=== PATIENT | female | born 1975 | race Caucasian/White ===

== ENCOUNTER → 2018-02-24 12:41 | Outpatient (CLI) | payer OTHER, MEDICAID, SELFPAY ==
--- NOTE | 2018-02-24 | DI.US.S_ITS ---
PROCEDURE: US PELVIC COMPLETE INDICATIONS: HEAVY BLEEDING TECHNIQUE: Real-time scanning was performed of the pelvic organs, with image documentation. Additional endovaginal scanning was necessary due to incomplete visualization of the adnexal and endometrial structures by transabdominal scanning. COMPARISON: [facility], US, PELVIC COMPLETE, 09/30/2011, 16:37. FINDINGS: Transabdominal scanning: Limited scanning through the kidneys shows no hydronephrosis. No pathologic free abdominal or pelvic fluid. Endovaginal scanning: Uterus: The uterus is measuring within the upper limits of normal for size at 9.5 x 5.5 x 6 point centimeters. There are 2 posteriorly positioned fibroid along the mid aspect of the uterus. One is located on the intracranial region and the other is located on the surface of the uterus. These fibroids range in size from 1.5-2.0 cm in diameter. The endometrium measures 9 mm in maximal combined thickness. No significant fluid is contained within the endometrium. The cervix is grossly unremarkable. Ovaries: The right ovary measures 3.1 x 3.3 x 3.4 cm and is mildly enlarged, related to a collapsing versus recently ruptured mildly echogenic cyst measuring up to 1.8 cm in diameter.. The left ovary measures 3.3 x 1.8 x 2.9 cm. The left ovary is normal in size and otherwise unremarkable. IMPRESSION: 1. Endometrium appears to be within normal limits. 2. Small uterine fibroids. No submucosal fibroids are evident. 3. Probable collapsing versus hemorrhagic right ovarian cyst. Dictated by: Devon Yi M.D. on 02/24/2018 at 12:59 Approved by: Devon Yi M.D. on 02/24/2018 at 13:02
== END ==
PROVIDERS: Family Provider Family Medicine; PCP Family Medicine; Visit Provider Physician Assistant Medical
DX: N93.9 Abnormal uterine and vaginal bleeding, unspecified (principal); D25.9 Leiomyoma of uterus, unspecified; N83.201 Unspecified ovarian cyst, right side
CPT/HCPCS: 76830; 76856

== ENCOUNTER 2019-08-01 18:26 | Emergency (ER) | payer OTHER, MEDICAID, SELFPAY ==
[2019-08-01 18:45] VITALS: BP 137/83; PULSE 89; RESP 18; TEMP 37; O2SAT 98
--- NOTE | 2019-08-01 19:16 | ED_ITS ---
HPI - Abdominal Pain General Chief Complaint: Abdominal Pain Stated Complaint: pain in ribs, states liver is inflammed Time Seen by Provider: 08/01/19 19:05 Source: patient and old records reviewed Mode of arrival: Ambulatory Limitations: no limitations History of Present Illness HPI narrative: Patient is a 44 year old female with history of trigeminal neuralgia presenting today with a variety of complaints. She states that her chest has been hurting for about 2 days. It comes and goes, she says it seems to be her ribs bilaterally starting posteriorly and radiating to the front. It lasts from 30 minutes to a few hours. Worse with exertion and movement. She did say that it woke her from her sleep last night. She went to her PCP where she had blood work and it was found that her liver enzymes were elveated in the 500's. She is having some abdominal pain, right sided both upper and lower. She is currently chest pain free. MD complaint: abdominal pain Pain Consistency: intermittent Location: RUQ and RLQ Severity: mild Quality: sharp Relieving factors: nothing Exacerbating factors: movement Related Data Previous Rx's Medication Instructions Recorded dexamethasone 2 mg PO BID #15 tab 12/15/16 Allergies Allergy/AdvReac Type Severity Reaction Status Date / Time Sulfa (Sulfonamide Allergy Mild RASH Unverified 01/18/18 12:04 Antibiotics) Review of Systems Review of Systems ROS Unobtainable: All systems reviewed & are unremarkable except as noted in HPI and below Constitutional Constitutional: Denies chills, Denies fever(s), Denies lethargy and Denies weakness Cardiovascular Cardiovascular: Reports as per HPI and Reports chest pain Gastrointestinal Gastrointestinal: Reports as per HPI, Reports abdominal pain, Denies diarrhea, Denies nausea and Denies vomiting Genitourinary Genitourinary: Denies hematuria, Denies flank pain, Denies urinary incontinence and Denies urinary urgency Musculoskeletal Musculoskeletal: Denies back pain, Denies muscle weakness, Denies numbness and Denies tingling Integumentary/Breasts Skin/Breast: Denies pruritus, Denies erythema, Denies rash and Denies wounds Neurologic Neurologic: Denies numbness, Denies tingling and Denies weakness Patient History Medical History Trigeminal neuralgia (Acute) Social History Smoking Status: Never smoker alcohol intake frequency: holidays/special occasions only Substance Use Type: marijuana Exam Initial Vital Signs Initial Vital Signs: Vital Signs Temperature 98.6 F 08/01/19 18:45 Pulse Rate 89 08/01/19 18:45 Respiratory Rate 18 08/01/19 18:45 Blood Pressure 137/83 08/01/19 18:45 Pulse Oximetry 98 08/01/19 18:45 Const General: cooperative and well developed Nutritional Appearance: well nourished Orientation: alert, awake, oriented x3 and not confused [facility] Head: normal to inspection and normocephalic Eyes General: appearance normal, both eyes and all related structures Resp Effort & Inspection: normal respiratory effort, able to speak in complete sentences, no respiratory distress and no use of accessory muscles Auscultation: clear to auscultation bilaterally, no rales, no rhonchi and no wh eezes Cardio Rate: regular rate Rhythm: regular rhythm Heart Sounds: no click, no gallops, no murmurs and no rubs Pulses: normal peripheral pulses GI Inspection: normal to inspection Palpation: soft and tender (RUQ pain +house's and RLQ pain) Skin General: no rashes or lesions noted, No jaundice and No petechiae Neuro General: alert, oriented x3, gait normal and no focal motor deficits Speech: speech normal Extrem General: normal to inspection Course Orders Ordered: ED Orders 08/01/19 19:05 EKG-12 Lead Stat 08/01/19 19:14 CT abdomen pelvis w con Stat US abdomen limited Stat XR chest 1V Stat 08/01/19 19:15 Complete Blood Count AUTO DIFF Stat Comprehensive Metabolic Panel Stat Lipase Stat Partial Thromboplastin Time Stat Prothrombin Time INR Stat Troponin & CK Cardiac Panel Stat Discontinued Medications Hydromorphone HCl (Dilaudid) 0.5 mg IV NOW ONE Stop: 08/01/19 21:26 Last Admin: 08/01/19 21:30 Dose: 0.5 mg Documented by: MMCFARL Sodium Chloride (Normal Saline 0.9%) 1,000 mls @ 125 mls/hr IV CONT RONAL Last Infusion: 08/01/19 22:46 Dose: 125 mls/hr Documented by: Admin: 08/01/19 22:13 Dose: 125 mls/hr Documented by: MMCFARL Ondansetron HCl (Zofran) 4 mg IV NOW ONE Stop: 08/01/19 22:03 Last Admin: 08/01/19 22:13 Dose: 4 mg Documented by: BINU Vital Signs Vital signs: Vital Signs - 8 hr 08/01/19 18:45 08/01/19 19:45 08/01/19 20:00 Temperature 98.6 F Pulse Rate 89 83 85 Respiratory Rate 18 19 15 Blood Pressure 137/83 Blood Pressure [Left Arm] 116/90 109/66 Pulse Oximetry 98 99 100 08/01/19 21:30 08/01/19 22:00 Temperature Pulse Rate 87 88 Respiratory Rate 17 16 Blood Pressure Blood Pressure [Left Arm] 134/88 118/81 Pulse Oximetry 100 100 MDM - Abdominal Pain Lab Data Attestation: I reviewed the patient's lab results. Result diagrams: 08/01/19 19:15 08/01/19 19:15 Labs: Lab Results 08/01/19 08/01/19 08/01/19 Range/Units 19:15 19:15 19:15 WBC 5.1 (4.5-11.0) X10^3/uL RBC 4.06 (4.0-5.2) X10^6/uL Hgb 13.2 (12.0-16.0) g/dL Hct 38.6 (36-46) % MCV 95.3 (80-100) fL MCH 32.4 (26-34) PG MCHC 34.1 (30-36) % RDW 12.5 (11.6-14.8) % Plt Count 227 (150-400) X10^3/uL Neut % (Auto) 60.7 (50-75) % Lymph % (Auto) 30.4 (25-40) % [place] % (Auto) 6.8 (3-14) % Eos % (Auto) 1.3 L (2-4) % Baso % (Auto) 0.8 (0-2) % Neut # (Auto) 3100 (6713-8995) /uL Lymph # (Auto) 1500 (5597-2175) /uL [place] # (Auto) 300 (0-900) /uL Eos # (Auto) 100 (0-450) /uL Baso # (Auto) 0 (0-100) /uL PT 10.6 (10.1-12.7) SECONDS INR 0.9 (0.9-1.3) APTT 28 (26.4-36.2) SECONDS Sodium 138 (137-145) mmol/L Potassium 3.7 (3.4-5.1) mmol/L Chloride 108 H (98-107) mmol/L Carbon Dioxide 22 (22-32) mmol/L BUN 7 (7-17) mg/dL Creatinine 0.70 (0.52-1.04) mg/dL Estimated GFR > 60.0 (>60) mL/min BUN/Creatinine Ratio 10.0 (6-22) Glucose 94 (70-100) mg/dL Calcium 9.1 (8.4-10.2) mg/dL Total Bilirubin 2.9 H (0.2-1.3) mg/dL AST 729 H (14-36) IU/L ALT 1482 H (9-52) IU/L Alkaline Phosphatase 173 H (38-126) U/L Total Creatine Kinase (30-135) U/L CK-MB (CK-2) CK-MB (CK-2) Rel Index Troponin I (0.01-0.034) ng/mL Total Protein 7.7 (6.3-8.2) g/dL Albumin 4.7 (3.5-5.0) g/dL Globulin 3.0 (1.7-4.1) g/dL Albumin/Globulin Ratio 1.6 (1.0-2.8) Lipase 115 (23-300) U/L 08/01/19 Range/Units 19:15 WBC (4.5-11.0) X10^3/uL RBC (4.0-5.2) X10^6/uL Hgb (12.0-16.0) g/dL Hct (36-46) % MCV (80-100) fL MCH (26-34) PG MCHC (30-36) % RDW (11.6-14.8) % Plt Count (150-400) X10^3/uL Neut % (Auto) (50-75) % Lymph % (Auto) (25-40) % [place] % (Auto) (3-14) % Eos % (Auto) (2-4) % Baso % (Auto) (0-2) % Neut # (Auto) (8008-6171) /uL Lymph # (Auto) (4367-0960) /uL [place] # (Auto) (0-900) /uL Eos # (Auto) (0-450) /uL Baso # (Auto) (0-100) /uL PT (10.1-12.7) SECONDS INR (0.9-1.3) APTT (26.4-36.2) SECONDS Sodium (137-145) mmol/L Potassium (3.4-5.1) mmol/L Chloride (98-107) mmol/L Carbon Dioxide (22-32) mmol/L BUN (7-17) mg/dL Creatinine (0.52-1.04) mg/dL Estimated GFR (>60) mL/min BUN/Creatinine Ratio (6-22) Glucose (70-100) mg/dL Calcium (8.4-10.2) mg/dL Total Bilirubin (0.2-1.3) mg/dL AST (14-36) IU/L ALT (9-52) IU/L Alkaline Phosphatase (38-126) U/L Total Creatine Kinase 67 (30-135) U/L CK-MB (CK-2) TNP CK-MB (CK-2) Rel Index TNP Troponin I < 0.012 (0.01-0.034) ng/mL Total Protein (6.3-8.2) g/dL Albumin (3.5-5.0) g/dL Globulin (1.7-4.1) g/dL Albumin/Globulin Ratio (1.0-2.8) Lipase (23-300) U/L Point of care testing: Point of Care Testing Test Results Negative Urine Dip Bedside Urine Glucose Negative Bedside Urine Bilirubin - Negative Bedside Urine Ketone - Negative Urine Specific [place] 1.005 Bedside Urine Occult Blood +/- Bedside Urine pH 7.0 Bedside Urine Protein - Negative Bedside Urine Urobilinogen - Negative Bedside Urine Nitrite - Negative Bedside Urine Leukocytes - Negative Esterase Imaging Data Chest x-ray: Radiologist's impression: PROCEDURE: XR CHEST 1V INDICATIONS: chest pain TECHNIQUE: One view of the chest was acquired. COMPARISON: [facility], , CHEST 1 VIEW, 12/10/2017, 9:27. FINDINGS: Surgical changes and devices: None. Lungs and pleura: Lungs are clear. No pleural effusions or pneumothorax. Mediastinum: Mediastinal contours appear normal. Heart size is normal. Bones and chest wall: No suspicious bony lesions. Overlying soft tissues appear unremarkable. IMPRESSION: No acute cardiopulmonary disease. Dictated by: Lori Padilla M.D. on 08/01/2019 at 20:22 US - abdomen: Radiologist's impression: PROCEDURE: US ABDOMEN LIMITED INDICATIONS: RIGHT UPPER QUADRANT PAIN TECHNIQUE: Real-time focused scanning was performed of the right upper quadrant of the abdomen, with image documentation. COMPARISON: None. FINDINGS: The gallbladder contains numerous stones, one of the largest is 5 mm. They layer dependently and are mobile. The wall is normal thickness at 2.2 mm. No pericholecystic fluid. There was a sonographic House's sign per the technologist. Visible pancreas is normal. The liver is normal in size and echogenicity. No intrahepatic biliary dilatation. The extrahepatic common duct is at the upper limits of normal at 6.6 mm. The visible portions of the right kidney are normal without hydronephrosis. No fluid in Russ's pouch. IMPRESSION: 1. Cholelithiasis. 2. Positive sonographic House's sign but no other objective sonographic findings of acute cholecystitis. Close clinical followup is recommended. 3. Otherwise normal right upper quadrant ultrasound. Dictated by: Lori Padilla M.D. on 08/01/2019 at 21:19 CT scan - abdomen: Radiologist's impression: PROCEDURE: CT ABDOMEN PELVIS W CON INDICATIONS: rlq pain and ruq pain TECHNIQUE: After the administration of intravenous contrast, 5 mm thick sections acquired from the diaphragm to the symphysis. 5 mm coronal and sagittal reformats were acquired. For radiation dose reduction, the following was used: automated exposure control, adjustment of mA and/or kV according to patient size. COMPARISON: None. FINDINGS: Image quality: Excellent. ABDOMEN: Lung bases: Lung bases are clear. Heart size is normal. Solid organs: Liver is normal in size and enhancement. Gallbladder contains fine calcification layering dependently in the body and neck of gallbladder. No significant surrounding inflammation. Biliary system is non dilated. Pancreas enhances normally. Spleen is normal in size and enhancement. No adrenal nodules. Kidneys demonstrate normal size and enhancement, without hydronephrosis. Peritoneum and bowel: Bowel loops demonstrate normal wall thickness and caliber. No free fluid or air. Normal appendix. Nodes and vessels: No retroperitoneal or mesenteric adenopathy by size criteria. Aorta and inferior vena cava are normal in size. Miscellaneous: No ventral hernias. PELVIS: Genitourinary: Bladder wall thickness is normal. The uterus is surgically absent. Ovarian tissue appears normal. Miscellaneous: No inguinal hernias or adenopathy. Bones: No suspicious bony lesions. No vertebral body compression fractures. IMPRESSION: 1. Cholelithiasis without CT evidence of acute cholecystitis. 2. Normal appendix and right ovary. 3. Hysterectomy. Dictated by: Lori Padilla M.D. on 08/01/2019 at 21:22 ECG Data Attestation: I personally reviewed and interpreted this ECG as follows: Prior ECG tracings: not available for review Interpretation: Normal sinus rhythm rate 69 p.r. interval 154 QRS [address] elevations depressions or T-wave inversion MDM Narrative Medical decision making narrative: Patient is tender in the right upper quadrant. Liver enzymes are significantly more elevated than they were previously, she also now has an elevated bilirubin of 2.9 previously 1.0. She has no fever no leukocytosis at this time no sign of acute cholecystitis. No indication for antibiotics Dr. Jennings surgery states that patient does need an ERCP not available at [facility]. Dr. Badillo at [facility] happily accepts patient for transfer. Discharge Plan Departure Patient Disposition: [facility] Clinical Impression: Cholelithiasis Discharge Date/Time: 08/01/19 22:46 Prescriptions: No Action dexamethasone 2 MG tablet 2 mg PO BID Qty: 15 RF: 0 Referrals: Jorge Luis Dykes MD [Primary Care Provider] -
--- NOTE | 2019-08-01 19:30 | PC.NURSE ---
PT states intermittent right sided abd pain and chest pain for past 2 days. Pt states CP has resolved yet abd pain is still present and worsens with exertion or movement. Pt reports she saw her PCP today and was told to come to ER for elevated liver enzymes in the 500's. Pt states she is nauseated and vomited once last night. Abdominal tender upon palpation. Pt has hx of trigeminal neuralgia. n
[2019-08-01 19:40] LABS: Add Manual Diff / Slide Review NO; Basophils Absolute Auto 0 /uL (0-100); Basophils Percent Auto 0.8 % (0-2); Eosinophils Absolute Auto 100 /uL (0-450); Eosinophils Percent Auto 1.3 % (2-4); Hematocrit 38.6 % (36-46); Hemoglobin 13.2 g/dL (12.0-16.0); Lymphocytes Absolute Auto 1500 /uL (1100-4500); Lymphocytes Percent Auto 30.4 % (25-40); Mean Corpuscular HGB Conc 34.1 % (30-36); Mean Corpuscular Hemoglobin 32.4 PG (26-34); Mean Corpuscular Volume 95.3 fL (80-100); Monocytes Absolute Auto 300 /uL (0-900); Monocytes Percent Auto 6.8 % (3-14); Neutrophils Absolute Auto 3100 /uL (1500-7000); Neutrophils Percent Auto 60.7 % (50-75); Platelet Count 227 X10^3/uL (150-400); Red Blood Cell Count 4.06 X10^6/uL (4.0-5.2); Red Cell Distribution Width 12.5 % (11.6-14.8); White Blood Cell Count 5.1 X10^3/uL (4.5-11.0)
[2019-08-01 19:45] VITALS: BP 116/90; PULSE 83; RESP 19; O2SAT 99
[2019-08-01 19:46] LABS: INR 0.9 (0.9-1.3); Prothrombin Time 10.6 SECONDS (10.1-12.7)
[2019-08-01 19:49] LABS: PTT Partial Thromboplastin Tim 28 SECONDS (26.4-36.2)
[2019-08-01 19:51] LABS: Creatine Kinase 67 U/L (30-135)
[2019-08-01 20:00] VITALS: BP 109/66; PULSE 85; RESP 15; O2SAT 100
[2019-08-01 20:03] LABS: Troponin I < 0.012 ng/mL (0.01-0.034)
[2019-08-01 20:11] LABS: Albumin 4.7 g/dL (3.5-5.0); Albumin Globulin Ratio 1.6 (1.0-2.8); Alkaline Phosphatase 173 U/L (38-126); Aspartate Aminotransferase 729 IU/L (14-36); Bilirubin Total 2.9 mg/dL (0.2-1.3); Blood Urea Nitrogen 7 mg/dL (7-17); Calcium 9.1 mg/dL (8.4-10.2); Carbon Dioxide 22 mmol/L (22-32); Chloride 108 mmol/L (98-107); Estimated Glomerular Filt Rate > 60.0 mL/min (>60); Glucose 94 mg/dL (70-100); HEMOLYSIS < 15 (0-50); Lipase 115 U/L (23-300); Potassium 3.7 mmol/L (3.4-5.1); Sodium 138 mmol/L (137-145); Total Protein 7.7 g/dL (6.3-8.2)
[2019-08-01 20:19] LABS: Alanine Aminotransferase 1482 IU/L (9-52)
[2019-08-01 21:30] VITALS: BP 134/88; PULSE 87; RESP 17; O2SAT 100
[2019-08-01] MEDS: HYDROMORPHONE 0.5 MG INJ IV (21:30)
[2019-08-01 22:00] VITALS: BP 118/81; PULSE 88; RESP 16; O2SAT 100
[2019-08-01] MEDS: ONDANSETRON 4 MG/2 ML INJ IV (22:13)
[2019-08-01] MEDS: SODIUM CHLORIDE 0.9% 1,000 ML 125 ML IV (22:13)
== END 2019-08-01 22:46 | disposition short-term general hospital (02) ==
PROVIDERS: Emergency Provider Emergency Medicine; Family Provider Family Medicine; PCP Family Medicine
DX: K80.20 Calculus of gallbladder without cholecystitis without obstruction (principal); R07.9 Chest pain, unspecified; R10.11 Right upper quadrant pain
CPT/HCPCS: 36415; 71045; 74177; 76705; 80053; 81003; 81025; 82550; 83690; 84484; 85025; 85610; 85730; 93005; 96361; 96374; 96375; 99283; 99285; J1170; J2405; Q9967

== ENCOUNTER 2019-08-10 18:46 | Inpatient (IN) | payer OTHER, MEDICAID, SELFPAY ==
[2019-08-10 18:54] VITALS: BP 129/83; PULSE 93; RESP 15; TEMP 37.4; O2SAT 99; BMI 35.5
[2019-08-10 19:54] VITALS: BP 130/87; PULSE 82; RESP 19; O2SAT 100
--- NOTE | 2019-08-10 19:59 | ED_ITS ---
HPI - Abdominal Pain General Chief Complaint: Abdominal Pain Stated Complaint: PAIN RIGHT SIDE PAIN BACK SHOULDER AND CHEST Time Seen by Provider: 08/10/19 19:52 Source: patient Mode of arrival: Ambulatory Limitations: no limitations History of Present Illness HPI narrative: 44-year-old female who approximately 1 week ago was seen here in this emergency department. Was diagnosed with choledocholithiasis with elev ation in her LFTs. Was sent to [facility]. Patient states that during that admission she had a ERCP. She stated that she had ?3 stones? removed from her common bile duct. She stated that there was discussion about taking her gallbladder out however they decided to hold on doing this because of the elevation in her LFTs. She stated that yesterday she had routine blood work done ordered by the providers at [facility]. This was done an outside facility. She got a call from both her primary doctor and the doctors at [facility] to come to this emergency department because she had abnormalities in her lab tests and was told that she had ?pancreatitis? patient does report bilateral upper abdomen pain. She states that it is somewhat better than when she was here 1 week ago. Some vomiting. Related Data Previous Rx's Medication Instructions Recorded dexamethasone 2 mg PO BID #15 tab 12/15/16 Allergies Allergy/AdvReac Type Severity Reaction Status Date / Time Sulfa (Sulfonamide Allergy Mild RASH Verified 08/10/19 18:54 Antibiotics) Review of Systems Constitutional Constitutional: Denies fever(s) Cardiovascular Cardiovascular: Denies chest pain and Denies dyspnea Respiratory Respiratory: Denies dyspnea Gastrointestinal Gastrointestinal: Reports abdominal pain, Denies change in stool character, Denies nausea and Denies vomiting Genitourinary Genitourinary: Denies dysuria Musculoskeletal Musculoskeletal: Denies myalgias and Denies arthralgias Integumentary/Breasts Skin/Breast: Denies pruritus and Denies rash Neurologic Neurologic: Denies behavioral changes Psychiatric Psychiatric: Denies behavioral changes Hematologic/Lymphatic Hematologic/Lymphatic: Denies easy bleeding and Denies easy bruising Patient History Medical History (Updated 08/10/19 @ 22:41 by Garfield Arriaza DO) Atypical chest pain (Inactive) Cholelithiases (Inactive) Headache (Inactive) Trigeminal neuralgia (Acute) Social History Smoking Status: Never smoker alcohol intake frequency: holidays/special occasions only Substance Use Type: marijuana Exam Initial Vital Signs Initial Vital Signs: Vital Signs Temperature 99.4 F 08/10/19 18:54 Pulse Rate 93 H 08/10/19 18:54 Respiratory Rate 15 08/10/19 18:54 Blood Pressure 129/83 08/10/19 18:54 Pulse Oximetry 99 08/10/19 18:54 Const General: cooperative, comfortable and well developed Orientation: alert, awake and oriented x3 HENMT Head: normal to inspection and normocephalic Resp Effort & Inspection: normal respiratory effort Auscultation: clear to auscultation bilaterally Cardio Rate: regular rate Rhythm: regular rhythm GI Inspection: non-distended Palpation: soft, No firm and tender (Upper abdomen tenderness) Skin Lesions: no lesions Rashes: no rashes Neuro General: alert and awake Cognition: normal cognition Speech: speech normal Extrem General: normal to inspection and capillary refill normal Psych Appearance: grossly normal and well kempt Course Orders Ordered: ED Orders 08/10/19 20:15 Complete Blood Count AUTO DIFF Stat Comprehensive Metabolic Panel Stat Lipase Stat Partial Thromboplastin Time Stat Prothrombin Time INR Stat 08/10/19 20:58 EKG-12 Lead Stat 08/10/19 21:39 US abdomen limited Stat Lactated Ringer's (Lactated Ringers) 1,000 mls @ 125 mls/hr IV CONT RONAL Discontinued Medications Ondansetron HCl (Zofran) 4 mg IV NOW ONE Stop: 08/10/19 20:27 Last Admin: 08/10/19 20:32 Dose: 4 mg Documented by: DAYNE Vital Signs Vital signs: Vital Signs - 8 hr 08/10/19 18:54 08/10/19 19:54 08/10/19 21:17 Temperature 99.4 F Pulse Rate 93 H 82 72 Respiratory Rate 15 19 15 Blood Pressure 129/83 Blood Pressure [Right Arm] 130/87 115/74 Pulse Oximetry 99 100 98 MDM - Abdominal Pain Lab Data Attestation: I reviewed the patient's lab results. Result diagrams: 08/10/19 20:15 08/10/19 20:15 Labs: Lab Results 08/10/19 08/10/19 08/10/19 Range/Units 20:15 20:15 20:15 WBC 6.8 (4.5-11.0) X10^3/uL RBC 3.84 L (4.0-5.2) X10^6/uL Hgb 12.7 (12.0-16.0) g/dL Hct 36.4 (36-46) % MCV 94.7 (80-100) fL MCH 32.9 (26-34) PG MCHC 34.8 (30-36) % RDW 12.8 (11.6-14.8) % Plt Count 311 (150-400) X10^3/uL Neut % (Auto) 51.5 (50-75) % Lymph % (Auto) 38.6 (25-40) % [place] % (Auto) 8.0 (3-14) % Eos % (Auto) 1.3 L (2-4) % Baso % (Auto) 0.6 (0-2) % Neut # (Auto) 3500 (4810-3832) /uL Lymph # (Auto) 2600 (4460-1212) /uL [place] # (Auto) 500 (0-900) /uL Eos # (Auto) 100 (0-450) /uL Baso # (Auto) 0 (0-100) /uL PT 11.0 (10.1-12.7) SECONDS INR 1.0 (0.9-1.3) APTT 32 D (26.4-36.2) SECONDS Sodium 136 L (137-145) mmol/L Potassium 3.7 (3.4-5.1) mmol/L Chloride 108 H (98-107) mmol/L Carbon Dioxide 22 (22-32) mmol/L BUN 10 (7-17) mg/dL Creatinine 0.60 (0.52-1.04) mg/dL Estimated GFR > 60.0 (>60) mL/min BUN/Creatinine Ratio 16.7 (6-22) Glucose 95 (70-100) mg/dL Calcium 9.4 (8.4-10.2) mg/dL Total Bilirubin 0.5 (0.2-1.3) mg/dL AST 28 (14-36) IU/L ALT 175 H (<35) IU/L Alkaline Phosphatase 90 D (38-126) U/L Total Protein 7.1 (6.3-8.2) g/dL Albumin 4.5 (3.5-5.0) g/dL Globulin 2.6 (1.7-4.1) g/dL Albumin/Globulin Ratio 1.7 (1.0-2.8) Lipase 651 H D (23-300) U/L Point of care testing: Point of Care Testing Test Results Negative Urine Dip Bedside Urine Glucose Negative Bedside Urine Bilirubin - Negative Bedside Urine Ketone - Negative Urine Specific [place] 1.010 Bedside Urine Occult Blood - Negative Bedside Urine pH 7.5 Bedside Urine Protein - Negative Bedside Urine Urobilinogen - Negative Bedside Urine Nitrite - Negative Bedside Urine Leukocytes - Negative Esterase MDM Narrative Medical decision making narrative: Review of the patient's labs that were done at [facility] show that she had a lipase in the 170s. Had a normal LFTs except for a slightly elevated alk-phos. This was done yesterday. Repeat labs today does show a lipase in the 600. She does have upper abdomen tenderness. Has known gallbladder disease. I discussed the case with Dr. Cheney with general surgery who states that because the elevation in her lipase that she should be admitted for treatment and potential cholecystectomy. Discussed this with the patient. She expressed understanding and agreement. Discharge Plan Departure Patient Disposition: Admitted As Inpatient Clinical Impression: Cholelithiases Qualifiers: Cholelithiasis location: other site Biliary obstruction: without biliary obstruction Qualified Code(s): K80.80 - Other cholelithiasis without obstruction Pancreatitis Qualifiers: Chronicity: acute Pancreatitis type: unspecified pancreatitis type Acute pancreatitis complication: unspecified Qualified Code(s): K85.90 - Acute pancreatitis without necrosis or infection, unspecified Admit Date/Time: 08/10/19 21:38 Admit Provider: Anastasiia Cheney
[2019-08-10 20:22] LABS: Add Manual Diff / Slide Review NO; Basophils Absolute Auto 0 /uL (0-100); Basophils Percent Auto 0.6 % (0-2); Eosinophils Absolute Auto 100 /uL (0-450); Eosinophils Percent Auto 1.3 % (2-4); Hematocrit 36.4 % (36-46); Hemoglobin 12.7 g/dL (12.0-16.0); Lymphocytes Absolute Auto 2600 /uL (1100-4500); Lymphocytes Percent Auto 38.6 % (25-40); Mean Corpuscular HGB Conc 34.8 % (30-36); Mean Corpuscular Hemoglobin 32.9 PG (26-34); Mean Corpuscular Volume 94.7 fL (80-100); Monocytes Absolute Auto 500 /uL (0-900); Neutrophils Absolute Auto 3500 /uL (1500-7000); Neutrophils Percent Auto 51.5 % (50-75); Platelet Count 311 X10^3/uL (150-400); Red Blood Cell Count 3.84 X10^6/uL (4.0-5.2); Red Cell Distribution Width 12.8 % (11.6-14.8); White Blood Cell Count 6.8 X10^3/uL (4.5-11.0)
[2019-08-10 20:31] LABS: PTT Partial Thromboplastin Tim 32 SECONDS (26.4-36.2)
[2019-08-10] MEDS: ONDANSETRON 4 MG/2 ML INJ IV (20:32)
[2019-08-10 20:33] LABS: Alanine Aminotransferase 175 IU/L (<35); Albumin 4.5 g/dL (3.5-5.0); Albumin Globulin Ratio 1.7 (1.0-2.8); Alkaline Phosphatase 90 U/L (38-126); Aspartate Aminotransferase 28 IU/L (14-36); BUN Creatinine Ratio 16.7 (6-22); Bilirubin Total 0.5 mg/dL (0.2-1.3); Blood Urea Nitrogen 10 mg/dL (7-17); Calcium 9.4 mg/dL (8.4-10.2); Carbon Dioxide 22 mmol/L (22-32); Chloride 108 mmol/L (98-107); Estimated Glomerular Filt Rate > 60.0 mL/min (>60); Globulin 2.6 g/dL (1.7-4.1); Glucose 95 mg/dL (70-100); HEMOLYSIS 20 (0-50); Lipase 651 U/L (23-300); Potassium 3.7 mmol/L (3.4-5.1); Sodium 136 mmol/L (137-145); Total Protein 7.1 g/dL (6.3-8.2)
[2019-08-10 21:17] VITALS: BP 115/74; PULSE 72; RESP 15; O2SAT 98
--- NOTE | 2019-08-10 21:39 | DI.US.S_ITS ---
PROCEDURE: US ABDOMEN LIMITED INDICATIONS: RIGHT UPPER QUADRANT ULTRASOUND FOR GALLBLADDER PATHOLOGY TECHNIQUE: Real-time focused scanning was performed of the abdomen, with image documentation. COMPARISON: [facility], CT, CT ABDOMEN PELVIS W [facility], 08/01/2019, 20:21. FINDINGS: Multiple gallstones are present within the gallbladder which is noted to be contracted on this exam. The gallbladder wall is noted to be thickened and measuring up to 4 mm. There is no pericholecystic fluid. The patient did not exhibit a positive sonographic House sign. The common bile duct measures 7 mm in diameter. The pancreas is unremarkable. The imaged portions of the liver are within normal limits. The right kidney, abdominal aorta, and inferior vena cava were not imaged. IMPRESSION: 1. Cholelithiasis without convincing imaging findings of acute cholecystitis. 2. Prominence of the common bile duct. MRCP may be helpful to exclude choledocholithiasis, if indicated. Note: The preliminary report provided by [facility]. is concordant with the final report. Dictated by: Devon Yi M.D. on 08/11/2019 at 6:42 Approved by: Devon Yi M.D. on 08/11/2019 at 6:44
[2019-08-10 22:40] VITALS: BP 128/78; PULSE 86; RESP 17; TEMP 36.3; O2SAT 98
[2019-08-10 22:42] VITALS: BMI 35.5
--- NOTE | 2019-08-10 22:43 | PM.HP.1 ---
History of Present Illness History of Present Illness Date Patient Seen: 08/10/19 Time Patient Seen: 22:43 Chief complaint: PAIN RIGHT SIDE PAIN BACK SHOULDER AND CHEST Narrative: This is a 44-year-old woman with history of trigeminal neuralgia, who came into the ER August 01 with choledocholithiasis. [facility] was [facility] where she had an ERCP, sphincterotomy, and removal of stones from her common bile duct. She was discharged without removing her gallbladder and has been followed via labs since then. She had labs done yesterday and received a call from [facility] saying that her lipase was elevated and she needed to go into the ER. Per report the lipase was 175 yesterday. Today in the ER the lipase is 651 and her ALT is 175. Her bilirubin is normal, and her other labs are unremarkable. The patient says she has not felt well since her ERCP. She has had persistent epigastric pain, poor appetite, and boring pain that goes through to her back. She denies any nausea or vomiting. She denies fevers at home. She has been eating very little, and sticking to a bland foods such as crackers and fat free cream of mushroom soup. She has persistent trigeminal neuralgia pain, for which she takes several medications including Tegretol, Topamax, and she takes prazosin to prevent nightmares. ROS: Ten system review unremarkable other than as mentioned in HPI. PE: GENERAL: Well groomed and cooperative. Appears stated age. Answers questions promptly and appropriately. Vital signs noted. HENT: Normocephalic, atraumatic. Hearing intact. Oral mucosa is pink and moist. EYES: Conjunctiva pink, sclera white, no periorbital swelling. CARDIOVASCULAR: Regular rate. No pedal edema. RESPIRATORY: Normal respiratory rate, breathing comfortably on room air. GASTROINTESTINAL: Abdomen soft and non-distended; moderate tenderness to palpation in the epigastrium GENITALURINARY: Mild flank tenderness. MUSCULOSKELETAL: Equal tone and mass bilaterally. SKIN: Warm, dry, soft, appropriate color for ethnicity. No other lesions, rashes, or wounds. NEURO: Alert and Oriented X 3. No gross sensory deficits, or cognitive issues. PSYCH: Appropriate affect and mood. Patient History Medical History (Updated 08/10/19 @ 23:01 by Anastasiia Cheney MD) Atypical chest pain (Inactive) Cholelithiases (Inactive) Headache (Inactive) Transaminitis (Acute) Trigeminal neuralgia (Acute) Family & Social History Safety & Behavioral: Feels Safe in Current Yes Environment Been Physically Hurt or No Threatened By a Person Tobacco & Substance use: Smoking Status Never smoker alcohol intake frequency holiday/special occasion Substance Use Type marijuana Meds Home Medications and Allergies Home Medications Medication Instructions Recorded Confirmed Type dexamethasone 2 mg PO BID #15 tab 12/15/16 Rx Allergies Allergy/AdvReac Type Severity Reaction Status Date / Time Sulfa (Sulfonamide Allergy Mild RASH Verified 08/10/19 18:54 Antibiotics) Exam Vital Signs (past 8 hours): - 08/10/19 18:54 08/10/19 19:54 08/10/19 21:17 Temperature 99.4 F Pulse Rate 93 H 82 72 Respiratory Rate 15 15 Blood Pressure 129/83 Blood Pressure [Right Arm] 130/87 115/74 Pulse Oximetry 99 100 98 Oxygen Delivery Method Room Air Objective Labs Result Diagrams: 08/10/19 20:15 08/10/19 20:15 Labs: Laboratory Results - last 24 hr 08/10/19 08/10/19 08/10/19 20:15 20:15 20:15 WBC 6.8 RBC 3.84 L Hgb 12.7 Hct 36.4 MCV 94.7 MCH 32.9 MCHC 34.8 RDW 12.8 Plt Count 311 Neut % (Auto) 51.5 Lymph % (Auto) 38.6 [place] % (Auto) 8.0 Eos % (Auto) 1.3 L Baso % (Auto) 0.6 Neut # (Auto) 3500 Lymph # (Auto) 2600 [place] # (Auto) 500 Eos # (Auto) 100 Baso # (Auto) 0 PT 11.0 INR 1.0 APTT 32 D Sodium 136 L Potassium 3.7 Chloride 108 H Carbon Dioxide 22 BUN 10 Creatinine 0.60 Estimated GFR > 60.0 BUN/Creatinine Ratio 16.7 Glucose 95 Calcium 9.4 Total Bilirubin 0.5 AST 28 ALT 175 H Alkaline Phosphatase 90 D Total Protein 7.1 Albumin 4.5 Globulin 2.6 Albumin/Globulin Ratio 1.7 Lipase 651 H D Assessment & Plan Assessment and plan (1) Cholelithiasis: Problem details: Known history of gallstones and choledocholithiasis status post ERCP Repeat right upper quadrant ultrasound Current visit: No Status: Acute (2) Pancreatitis: Problem details: Lipase 651 on August 10 Bowel rest; trend labs Qualifiers: Acute pancreatitis complication: unspecified Chronicity: acute Pancreatitis type: unspecified pancreatitis type Qualified Code(s): K85.90 - Acute pancreatitis without necrosis or infection, unspecified Current visit: Yes Status: Acute (3) Trigeminal neuralgia: Problem details: Baseline Continue home meds Current visit: No Status: Acute (4) Transaminitis: Problem details: Improved from previous but still elevated, ALT 175 Bowel rest; Trend labs Current visit: Yes Status: Acute Assessment & Plan narrative: This is a 44-year-old woman with history of choledocholithiasis now status post ERCP and sphincterotomy. This was done about 8 days ago. Since then she has had smoldering epigastric and upper back pain. On labs yesterday she was found to have an elevated lipase level of 175, which is now 651. She clearly has some low-grade pancreatitis which may be secondary to the ERCP itself or she may have passed another stone since the ERCP causing of gallstone pancreatitis. Either way we will go ahead and treat her with bowel rest and supportive care. Once her pancreatitis resolves her gallbladder should be removed. Plan: Repeat right upper quadrant ultrasound Admit to acute care unit Bowel rest, NPO except for fat free clears for comfort IV fluids 150 of LR per hour Home meds: Carbamazepine, Topamax, prazosin Pain meds: Tylenol, oxycodone Ambulation as tolerated Daily labs DVT ppx 35 minutes were spent face to face with the patient. More than 50% of the time was spent in counseling and co-ordination of care regarding plan of care for pancreatitis, possible cholecystectomy, and communication with her doctor at [facility]. We also discussed her outpatient meds and treatment for her trigeminal neuralgia. Time Spent With Patient Time with patient: Greater than 35 minutes Quality VTE Deep Vein Thrombosis/Pulmonary Embolism Present on Admission: No
[2019-08-10] MEDS: LACTATED RINGERS 1,000 ML 150 ML IV (23:15)
[2019-08-10] MEDS: ACETAMINOPHEN 325 MG TABLET 650 MG PO (23:48)
[2019-08-10] MEDS: OXYCODONE IR 5 MG TABLET PO (23:48)
[2019-08-10] MEDS: PRAZOSIN 1 MG CAPSULE 8 MG PO (23:55)
[2019-08-11] VITALS (7 sets, daily range): BP systolic 103–118; BP diastolic 57–76; PULSE 67–95; RESP 14–95; TEMP 36.6–37; O2SAT 98–100
[2019-08-11] MEDS: ONDANSETRON 4 MG/2 ML INJ IV ×2 (00:22→04:53)
[2019-08-11] MEDS: OXYCODONE IR 5 MG TABLET PO (04:52)
[2019-08-11] MEDS: LACTATED RINGERS 1,000 ML 150 ML IV ×3 (04:53→18:36)
[2019-08-11 06:50] LABS: Add Manual Diff / Slide Review NO; Basophils Absolute Auto 0 /uL (0-100); Basophils Percent Auto 0.8 % (0-2); Eosinophils Absolute Auto 100 /uL (0-450); Eosinophils Percent Auto 2.2 % (2-4); Hemoglobin 11.8 g/dL (12.0-16.0); Lymphocytes Absolute Auto 1800 /uL (1100-4500); Lymphocytes Percent Auto 44.4 % (25-40); Mean Corpuscular HGB Conc 35.9 % (30-36); Mean Corpuscular Hemoglobin 33.4 PG (26-34); Mean Corpuscular Volume 93.2 fL (80-100); Monocytes Absolute Auto 400 /uL (0-900); Monocytes Percent Auto 9.5 % (3-14); Neutrophils Absolute Auto 1700 /uL (1500-7000); Neutrophils Percent Auto 43.1 % (50-75); Platelet Count 265 X10^3/uL (150-400); Red Blood Cell Count 3.54 X10^6/uL (4.0-5.2); Red Cell Distribution Width 12.6 % (11.6-14.8)
[2019-08-11] MEDS: ACETAMINOPHEN 325 MG TABLET 650 MG PO ×2 (06:53→16:29)
[2019-08-11 07:03] LABS: Alanine Aminotransferase 136 IU/L (<35); Albumin 3.6 g/dL (3.5-5.0); Albumin Globulin Ratio 1.7 (1.0-2.8); Alkaline Phosphatase 71 U/L (38-126); Aspartate Aminotransferase 22 IU/L (14-36); BUN Creatinine Ratio 16.7 (6-22); Bilirubin Total 0.5 mg/dL (0.2-1.3); Blood Urea Nitrogen 10 mg/dL (7-17); Calcium 8.7 mg/dL (8.4-10.2); Carbon Dioxide 21 mmol/L (22-32); Chloride 109 mmol/L (98-107); Estimated Glomerular Filt Rate > 60.0 mL/min (>60); Globulin 2.1 g/dL (1.7-4.1); Glucose 95 mg/dL (70-100); HEMOLYSIS < 15 (0-50); Lipase 461 U/L (23-300); Potassium 3.8 mmol/L (3.4-5.1); Sodium 138 mmol/L (137-145); Total Protein 5.7 g/dL (6.3-8.2)
[2019-08-11] MEDS: ENOXAPARIN 40 MG/0.4 ML SYRINGE SUBCUT (09:37)
[2019-08-11] MEDS: TOPIRAMATE 25 MG TABLET 50 MG PO ×2 (09:37→21:17)
[2019-08-11] MEDS: DOCUSATE 100 MG CAPSULE PO ×2 (09:37→21:17)
--- NOTE | 2019-08-11 09:37 | PM.PN.1 ---
Subjective Subjective Date Patient Seen: 08/11/19 Time Patient Seen: 11:08 Interval history: No acute events overnight. Pt still experiencing some nausea. Pain is basically the same. Exam Vital Signs (past 8 hours): - 08/11/19 04:35 Temperature 97.9 F Pulse Rate 92 H Respiratory Rate 17 Blood Pressure 111/64 Pulse Oximetry 100 Oxygen Delivery Method Room Air Narrative Exam Narrative: GENERAL: No acute distress, calm, comfortable HENT: Normocephalic, atraumatic. Oral mucosa is pink and moist. EYES: Conjunctiva pink, sclera white, no periorbital swelling. CARDIOVASCULAR: Regular rate. No pedal edema. RESPIRATORY: Normal respiratory rate, breathing comfortably on room air. GASTROINTESTINAL: Abdomen soft and non-distended; moderate tenderness to palpation in the epigastrium GENITALURINARY: Mild flank tenderness. MUSCULOSKELETAL: Equal tone and mass bilaterally. SKIN: Warm, dry, soft, appropriate color for ethnicity. No other lesions, rashes, or wounds. NEURO: Alert and Oriented X 3. No gross sensory deficits, or cognitive issues. PSYCH: Appropriate affect and mood. Objective Imaging US - abdomen: Radiologist's impression: PROCEDURE: US ABDOMEN LIMITED INDICATIONS: RIGHT UPPER QUADRANT ULTRASOUND FOR GALLBLADDER PATHOLOGY TECHNIQUE: Real-time focused scanning was performed of the abdomen, with image documentation. COMPARISON: [facility], CT, CT ABDOMEN PELVIS [facility], 08/01/2019, 20:21. FINDINGS: Multiple gallstones are present within the gallbladder which is noted to be contracted on this exam. The gallbladder wall is noted to be thickened and measuring up to 4 mm. There is no pericholecystic fluid. The patient did not exhibit a positive sonographic House sign. The common bile duct measures 7 mm in diameter. The pancreas is unremarkable. The imaged portions of the liver are within normal limits. The right kidney, abdominal aorta, and inferior vena cava were not imaged. IMPRESSION: 1. Cholelithiasis without convincing imaging findings of acute cholecystitis. 2. Prominence of the common bile duct. MRCP may be helpful to exclude choledocholithiasis, if indicated. Note: The preliminary report provided by [facility]. is concordant with the final report. Labs Result Diagrams: 08/11/19 06:30 08/11/19 06:30 Labs: Laboratory Results - last 24 hr 08/10/19 08/10/19 08/10/19 20:15 20:15 20:15 WBC 6.8 RBC 3.84 L Hgb 12.7 Hct 36.4 MCV 94.7 MCH 32.9 MCHC 34.8 RDW 12.8 Plt Count 311 Neut % (Auto) 51.5 Lymph % (Auto) 38.6 [place] % (Auto) 8.0 Eos % (Auto) 1.3 L Baso % (Auto) 0.6 Neut # (Auto) 3500 Lymph # (Auto) 2600 [place] # (Auto) 500 Eos # (Auto) 100 Baso # (Auto) 0 PT 11.0 INR 1.0 APTT 32 D Sodium 136 L Potassium 3.7 Chloride 108 H Carbon Dioxide 22 BUN 10 Creatinine 0.60 Estimated GFR > 60.0 BUN/Creatinine Ratio 16.7 Glucose 95 Calcium 9.4 Total Bilirubin 0.5 AST 28 ALT 175 H Alkaline Phosphatase 90 D Total Protein 7.1 Albumin 4.5 Globulin 2.6 Albumin/Globulin Ratio 1.7 Lipase 651 H D 08/11/19 08/11/19 08/11/19 06:30 06:30 06:30 WBC 4.0 L RBC 3.54 L Hgb 11.8 L Hct 33.0 L MCV 93.2 MCH 33.4 MCHC 35.9 RDW 12.6 Plt Count 265 Neut % (Auto) 43.1 L Lymph % (Auto) 44.4 H [place] % (Auto) 9.5 Eos % (Auto) 2.2 Baso % (Auto) 0.8 Neut # (Auto) 1700 Lymph # (Auto) 1800 [place] # (Auto) 400 Eos # (Auto) 100 Baso # (Auto) 0 PT INR APTT Sodium 138 Potassium 3.8 Chloride 109 H Carbon Dioxide 21 L BUN 10 Creatinine 0.60 Estimated GFR > 60.0 BUN/Creatinine Ratio 16.7 Glucose 95 Calcium 8.7 Total Bilirubin 0.5 AST 22 ALT 136 H Alkaline Phosphatase 71 Total Protein 5.7 L Albumin 3.6 Globulin 2.1 Albumin/Globulin Ratio 1.7 Lipase 461 H Assessment & Plan Assessment and plan (1) Transaminitis: Problem details: Improved from previous but still elevated, ALT 175 --> 136 Plan: Bowel rest; Trend labs Current visit: Yes Status: Acute (2) Cholelithiasis: Problem details: Known history of gallstones and choledocholithiasis status post ERCP Repeat right upper quadrant ultrasound-- prominence of common duct at 7mm, but no filling defects seen in CBD Bilirubin is 0.5 and AP is 71, patient has had recent ERCP and 9mm sphincterotomy, making choledocholithiasis unlikely. CBD dilation is likely secondary to recent procedure and possibly recent passage of a gall stone. Current visit: No Status: Acute (3) Pancreatitis: Problem details: Lipase 651--> 461 Plan: Bowel rest; trend labs Qualifiers: Acute pancreatitis complication: unspecified Chronicity: acute Pancreatitis type: unspecified pancreatitis type Qualified Code(s): K85.90 - Acute pancreatitis without necrosis or infection, unspecified Current visit: Yes Status: Acute (4) Trigeminal neuralgia: Problem details: Baseline Continue home meds Current visit: No Status: Acute (5) Postoperative pain: Current visit: No Status: Acute Assessment & Plan narrative: The patient is basically the same as when I saw her 12 hours ago. Pain is unchanged. Lipase is slightly better. Tolerating fat free clears PO. Based on looking at her labs, her repeat ultrasound, and the ERCP note from the ERCP she had last week at [facility], I believe that she has most likely passed another stone causing her to have a transient pancreatitis. However since she has had ongoing smoldering pain since the time of her ERCP it is possible that she has some ERCP related pancreatitis, with an acute exacerbation due to passing another stone. Given the complexity of the situation, I have put in a call to the team that treated her at [facility]. I am waiting for a call back from them I will plan on discussing the case with them. I do not think she needs to be transferred there at this point, but if she does not take an expected course of improvement in her pain and labs with bowel rest, it would be a possibility. Plan: Continue bowel rest with minimal p.o. clears for comfort IV fluids Pain med Home meds Ambulate as tolerated Daily labs Follow-up phone call with her team at [facility] Quality VTE Deep Vein Thrombosis/Pulmonary Embolism Present on Admission: No
--- NOTE | 2019-08-11 15:48 | CM.DANOTE ---
Discharge Planning/Care Management DCP: assessment: case received, EMR reviewed. Discussed in Team Rounds. Pt is a 44 year old female who admitted last night to care of [facility] team: Dr. Cheney. PCP: Dr. Janet Heck/Cesar Kaye ([place]). Payer: [employer]/Medicaid Admission status: INPT: confirmed by UR RN Darryl. Full dx and POC are in process. Pt was here in the ER on 08/01 and at that time was transferred to [facility] for higher level of specialty care. Dr. Cheney plans contact with the team who treated pt do discuss the case. She notes that pt is showing some improvement but that a transfer to will be considered if pt does not continue to improve with the currently medical management. P: follow up tomorrow as more is known to meet with pt and assist with any d/c needs that may arise. CM Discharge Assessment Start: 08/11/19 15:47 Freq: Status: Active Protocol: Document 08/11/19 15:47 ITV (Rec: 08/11/19 15:48 ITV [id number]) Discharge Planning Assessment Advance Directives? No History Provided By Medical Record Prior Living Arrangements House Household Members significant other Whiteboard Updated in Patient Room with Yes name and ext. # of Senior Software Developer
[2019-08-11] MEDS: KETOROLAC 15 MG/ML VIAL IV ×2 (16:30→21:18)
[2019-08-11] MEDS: PRAZOSIN 1 MG CAPSULE 8 MG PO (21:16)
[2019-08-11] MEDS: carBAMazepine XR 100 MG TAB 400 MG PO (21:16)
[2019-08-12 00:05] VITALS: BP 118/60; PULSE 95; RESP 16; TEMP 36.9; O2SAT 95
[2019-08-12] MEDS: LACTATED RINGERS 1,000 ML 150 ML IV ×3 (00:50→19:18)
[2019-08-12] MEDS: OXYCODONE IR 5 MG TABLET PO ×2 (01:07→08:43)
[2019-08-12 06:14] LABS: Add Manual Diff / Slide Review NO; Basophils Absolute Auto 0 /uL (0-100); Basophils Percent Auto 0.7 % (0-2); Eosinophils Absolute Auto 100 /uL (0-450); Eosinophils Percent Auto 2.1 % (2-4); Hematocrit 34.8 % (36-46); Hemoglobin 12.4 g/dL (12.0-16.0); Lymphocytes Absolute Auto 1500 /uL (1100-4500); Lymphocytes Percent Auto 39.9 % (25-40); Mean Corpuscular HGB Conc 35.6 % (30-36); Mean Corpuscular Hemoglobin 33.5 PG (26-34); Mean Corpuscular Volume 94.2 fL (80-100); Monocytes Absolute Auto 300 /uL (0-900); Monocytes Percent Auto 7.4 % (3-14); Neutrophils Absolute Auto 1900 /uL (1500-7000); Neutrophils Percent Auto 49.9 % (50-75); Platelet Count 263 X10^3/uL (150-400); Red Blood Cell Count 3.69 X10^6/uL (4.0-5.2); Red Cell Distribution Width 12.7 % (11.6-14.8); White Blood Cell Count 3.8 X10^3/uL (4.5-11.0)
[2019-08-12 06:21] LABS: Alanine Aminotransferase 112 IU/L (<35); Albumin 3.8 g/dL (3.5-5.0); Albumin Globulin Ratio 1.7 (1.0-2.8); Alkaline Phosphatase 70 U/L (38-126); Aspartate Aminotransferase 27 IU/L (14-36); BUN Creatinine Ratio 11.7 (6-22); Bilirubin Total 0.5 mg/dL (0.2-1.3); Blood Urea Nitrogen 7 mg/dL (7-17); Calcium 8.7 mg/dL (8.4-10.2); Carbon Dioxide 20 mmol/L (22-32); Chloride 110 mmol/L (98-107); Estimated Glomerular Filt Rate > 60.0 mL/min (>60); Globulin 2.3 g/dL (1.7-4.1); Glucose 104 mg/dL (70-100); HEMOLYSIS < 15 (0-50); Lipase 350 U/L (23-300); Potassium 3.9 mmol/L (3.4-5.1); Sodium 138 mmol/L (137-145); Total Protein 6.1 g/dL (6.3-8.2)
[2019-08-12 06:30] VITALS: BP 111/62; PULSE 81; RESP 16; TEMP 36.9; O2SAT 100
--- NOTE | 2019-08-12 06:56 | PC.NURSE ---
Pt reports pain/nausea improved in past 24hrs. Rates pain as tolerable. Requiring oxycodone x1. Abd pain now only at right flank, tolerating clear liq/no fats diet without nausea. Pt compliant with TEDS/SCDs overnight. No SCDs while sitting in chair. Remind to perform ankle waves q1hr in chair. Fall precautions, pt reports feeling less dizzy, still SBA for all OOB activity
[2019-08-12 07:35] VITALS: BP 121/82; PULSE 75; RESP 16; TEMP 36.7; O2SAT 99
[2019-08-12] MEDS: TOPIRAMATE 25 MG TABLET 50 MG PO ×2 (08:40→20:36)
[2019-08-12] MEDS: DOCUSATE 100 MG CAPSULE PO (08:40)
[2019-08-12] MEDS: ENOXAPARIN 40 MG/0.4 ML SYRINGE SUBCUT (08:40)
--- NOTE | 2019-08-12 09:13 | PM.PN.1 ---
Subjective Subjective Date Patient Seen: 08/12/19 Time Patient Seen: 08:00 Interval history: The patient is still having epigastric and back pain. She has had long periods without pain, which is an improvement. She denies nausea or vomiting. She has taken some p.o. clears, although this does seem to increase her pain. Exam Vital Signs (past 8 hours): - 08/12/19 06:30 08/12/19 07:35 Temperature 98.5 F 98.0 F Pulse Rate 81 75 Respiratory Rate 16 16 Blood Pressure 111/62 121/82 Pulse Oximetry 100 99 Oxygen Delivery Method Room Air Oxygen Flow Rate 0 Narrative Exam Narrative: GENERAL: Tearful, mild distress HENT: Normocephalic, atraumatic. Oral mucosa is pink and moist. EYES: Conjunctiva pink, sclera white, no periorbital swelling. CARDIOVASCULAR: Regular rate. No pedal edema. RESPIRATORY: Normal respiratory rate, breathing comfortably on room air. GASTROINTESTINAL: Abdomen soft and non-distended; nontender to palpation in the epigastrium GENITALURINARY: Mild flank tenderness. MUSCULOSKELETAL: Equal tone and mass bilaterally. SKIN: Warm, dry, soft, appropriate color for ethnicity. No other lesions, rashes, or wounds. NEURO: Alert and Oriented X 3. No gross sensory deficits, or cognitive issues. PSYCH: Appropriate affect and mood. Objective Labs Result Diagrams: 08/12/19 05:49 08/12/19 05:49 Labs: Laboratory Results - last 24 hr 08/12/19 08/12/19 08/12/19 05:49 05:49 05:49 WBC 3.8 L RBC 3.69 L Hgb 12.4 Hct 34.8 L MCV 94.2 MCH 33.5 MCHC 35.6 RDW 12.7 Plt Count 263 Neut % (Auto) 49.9 L Lymph % (Auto) 39.9 [place] % (Auto) 7.4 Eos % (Auto) 2.1 Baso % (Auto) 0.7 Neut # (Auto) 1900 Lymph # (Auto) 1500 [place] # (Auto) 300 Eos # (Auto) 100 Baso # (Auto) 0 Sodium 138 Potassium 3.9 Chloride 110 H Carbon Dioxide 20 L BUN 7 Creatinine 0.60 Estimated GFR > 60.0 BUN/Creatinine Ratio 11.7 Glucose 104 H Calcium 8.7 Total Bilirubin 0.5 AST 27 ALT 112 H Alkaline Phosphatase 70 Total Protein 6.1 L Albumin 3.8 Globulin 2.3 Albumin/Globulin Ratio 1.7 Lipase 350 H Assessment & Plan Assessment and plan (1) Transaminitis: Problem details: Improving Plan: Bowel rest; Trend labs Current visit: Yes Status: Acute (2) Cholelithiasis: Problem details: Known history of gallstones and choledocholithiasis status post ERCP Repeat right upper quadrant ultrasound-- prominence of common duct at 7mm, but no filling defects seen in CBD Bilirubin is 0.5 and AP is 71, patient has had recent ERCP and 9mm sphincterotomy, making choledocholithiasis unlikely. CBD dilation is likely secondary to recent procedure and possibly recent passage of a gall stone. Current visit: No Status: Acute (3) Pancreatitis: Problem details: Lipase 651--> 461-->350 Plan: Bowel rest; trend labs Qualifiers: Acute pancreatitis complication: unspecified Chronicity: acute Pancreatitis type: unspecified pancreatitis type Qualified Code(s): K85.90 - Acute pancreatitis without necrosis or infection, unspecified Current visit: Yes Status: Acute (4) Trigeminal neuralgia: Problem details: Baseline Continue home meds Current visit: No Status: Acute (5) Postoperative pain: Current visit: No Status: Acute Assessment & Plan narrative: This is a 44-year-old woman with pancreatitis likely secondary to her recent ERCP, as well as continuing to pass gallstones. Her pain is improving, but not resolved. Her lipase is trending down words slowly. I explained to the patient that given her current trajectory I would expect her to be appropriate for surgery probably by Tuesday. I have tentatively put her on the OR schedule for Tuesday afternoon. If she is out of pain by tomorrow, I have told her that [address] Walters or Dr. Jennings may be able to do her surgery tomorrow. Plan: Continue fat free clears as tolerated, emphasize taking the ensure if possible Ambulate frequently Pain medication as needed Daily labs Plan on laparoscopic cholecystectomy prior to discharge when pain has resolved Time Spent With Patient Time with patient: 25 - 35 minutes Quality VTE Deep Vein Thrombosis/Pulmonary Embolism Present on Admission: No
[2019-08-12 11:25] VITALS: BP 117/75; PULSE 70; RESP 16; TEMP 36.6; O2SAT 99
--- NOTE | 2019-08-12 13:51 | PC.NURSE ---
1350 Pt up has been up and ambulating in the miles & room. Voiding, denies nausea. Med for onset pain this AM, good relief and no further c/o. Pt inst by Dr Cheney to only take in Ensure Clear, 3 containers a day. Need to rest the pancreas. IV flluids cont, LR at 150 hr.
--- NOTE | 2019-08-12 15:04 | CM.DPC ---
DCP: continued: EMR reviewed and met now with pt as per plan. She was found up in room independently, pushing IV pole, working on drinking Ensure Clear. Her mother has arrived from [place] for support. Dr. Cheney saw pt today and has outlined plan for surgery: lap cristopher ,when pt is medically stable for same. Pt says the surgeon told her that this may happen Tuesday but more likely it will be Tuesday. Her pain level and labs are being monitored closely. DCP team will be following and will check in prn to assist with any d/c needs that may arise.
[2019-08-12 16:00] VITALS: BP 124/77; PULSE 72; RESP 16; TEMP 36.4; O2SAT 99
[2019-08-12] MEDS: ACETAMINOPHEN 325 MG TABLET 650 MG PO (19:23)
[2019-08-12] MEDS: KETOROLAC 15 MG/ML VIAL IV (19:23)
[2019-08-12 20:15] VITALS: BP 110/67; PULSE 89; RESP 18; TEMP 36.6; O2SAT 99
[2019-08-12] MEDS: PRAZOSIN 1 MG CAPSULE 8 MG PO (20:35)
[2019-08-12] MEDS: carBAMazepine XR 100 MG TAB 400 MG PO (20:36)
--- NOTE | 2019-08-12 21:55 | PC.NURSE ---
Assumed care of pt at 1500. Pt resting in bed during bedside hand-off. Pt reports abd discomfort is less tender than prior assessments. Pt ambulating to bathroom SBA, Steady on feet. Medicating per mar for headache and mild R. shoulder pain. Analgesics effective.
[2019-08-13] MEDS: LACTATED RINGERS 1,000 ML 150 ML IV ×3 (00:52→13:52)
[2019-08-13 01:05] VITALS: BP 102/59; PULSE 84; RESP 16; TEMP 37.3; O2SAT 99
[2019-08-13 05:30] VITALS: BP 115/65; PULSE 99; RESP 16; TEMP 36.9; O2SAT 100
[2019-08-13 06:10] LABS: Add Manual Diff / Slide Review NO; Basophils Absolute Auto 0 /uL (0-100); Basophils Percent Auto 0.7 % (0-2); Eosinophils Absolute Auto 100 /uL (0-450); Eosinophils Percent Auto 1.6 % (2-4); Hematocrit 34.6 % (36-46); Hemoglobin 12.2 g/dL (12.0-16.0); Lymphocytes Absolute Auto 1600 /uL (1100-4500); Lymphocytes Percent Auto 38.4 % (25-40); Mean Corpuscular HGB Conc 35.2 % (30-36); Mean Corpuscular Hemoglobin 33.2 PG (26-34); Mean Corpuscular Volume 94.4 fL (80-100); Monocytes Absolute Auto 300 /uL (0-900); Monocytes Percent Auto 7.3 % (3-14); Neutrophils Absolute Auto 2200 /uL (1500-7000); Platelet Count 254 X10^3/uL (150-400); Red Blood Cell Count 3.66 X10^6/uL (4.0-5.2); Red Cell Distribution Width 12.7 % (11.6-14.8); White Blood Cell Count 4.2 X10^3/uL (4.5-11.0)
[2019-08-13 06:16] LABS: Lipase 328 U/L (23-300)
[2019-08-13 06:17] LABS: Alanine Aminotransferase 98 IU/L (<35); Albumin 3.8 g/dL (3.5-5.0); Albumin Globulin Ratio 1.7 (1.0-2.8); Alkaline Phosphatase 76 U/L (38-126); Aspartate Aminotransferase 27 IU/L (14-36); BUN Creatinine Ratio 11.7 (6-22); Bilirubin Total 0.6 mg/dL (0.2-1.3); Blood Urea Nitrogen 7 mg/dL (7-17); Calcium 8.8 mg/dL (8.4-10.2); Carbon Dioxide 19 mmol/L (22-32); Chloride 111 mmol/L (98-107); Estimated Glomerular Filt Rate > 60.0 mL/min (>60); Globulin 2.3 g/dL (1.7-4.1); Glucose 97 mg/dL (70-100); HEMOLYSIS < 15 (0-50); Potassium 3.6 mmol/L (3.4-5.1); Sodium 138 mmol/L (137-145); Total Protein 6.1 g/dL (6.3-8.2)
--- NOTE | 2019-08-13 06:45 | PC.NURSE ---
Pt stated she has No pain this morning maybe a little tenderness at my shoulder. Denies nausea. Passed yellow stool x1. Sipping water and clear ensure this morning. Tentative plan for surgery if pain decreased today, more likely Tuesday.
--- NOTE | 2019-08-13 07:47 | PM.PN.1 ---
Subjective Subjective Date Patient Seen: 08/13/19 Time Patient Seen: 07:47 Interval history: No acute events overnight. Pain slightly better, hydrogenation still operator in the upper back. Has been taking very little PO because of fear of pain. Exam Vital Signs (past 8 hours): - 08/13/19 01:05 08/13/19 05:30 Temperature 99.1 F 98.5 F Pulse Rate 84 99 H Respiratory Rate 16 16 Blood Pressure 102/59 L 115/65 Pulse Oximetry 99 100 Oxygen Delivery Method Room Air Oxygen Flow Rate 0 Narrative Exam Narrative: GENERAL: Comfortable, alert, oriented HENT: Normocephalic, atraumatic. Oral mucosa is pink and moist. EYES: Conjunctiva pink, sclera white, no periorbital swelling. CARDIOVASCULAR: Regular rate. No pedal edema. RESPIRATORY: Normal respiratory rate, breathing comfortably on room air. GASTROINTESTINAL: Abdomen soft and non-distended; nontender to palpation in the epigastrium GENITALURINARY: Right flank tenderness. MUSCULOSKELETAL: Equal tone and mass bilaterally. SKIN: Warm, dry, soft, appropriate color for ethnicity. No other lesions, rashes, or wounds. NEURO: Alert and Oriented X 3. No gross sensory deficits, or cognitive issues. PSYCH: Appropriate affect and mood. Objective Labs Result Diagrams: 08/13/19 05:43 08/13/19 05:43 Labs: Laboratory Results - last 24 hr 08/13/19 08/13/19 08/13/19 05:43 05:43 05:43 WBC 4.2 L RBC 3.66 L Hgb 12.2 Hct 34.6 L MCV 94.4 MCH 33.2 MCHC 35.2 RDW 12.7 Plt Count 254 Neut % (Auto) 52.0 Lymph % (Auto) 38.4 [place] % (Auto) 7.3 Eos % (Auto) 1.6 L Baso % (Auto) 0.7 Neut # (Auto) 2200 Lymph # (Auto) 1600 [place] # (Auto) 300 Eos # (Auto) 100 Baso # (Auto) 0 Sodium 138 Potassium 3.6 Chloride 111 H Carbon Dioxide 19 L BUN 7 Creatinine 0.60 Estimated GFR > 60.0 BUN/Creatinine Ratio 11.7 Glucose 97 Calcium 8.8 Total Bilirubin 0.6 AST 27 ALT 98 H Alkaline Phosphatase 76 Total Protein 6.1 L Albumin 3.8 Globulin 2.3 Albumin/Globulin Ratio 1.7 Lipase 328 H Assessment & Plan Assessment and plan (1) Transaminitis: Problem details: Improving Plan: Bowel rest; Trend labs Current visit: Yes Status: Acute (2) Cholelithiasis: Problem details: Known history of gallstones and choledocholithiasis status post ERCP Repeat right upper quadrant ultrasound-- prominence of common duct at 7mm, but no filling defects seen in CBD Bilirubin is 0.5 and AP is 71, patient has had recent ERCP and 9mm sphincterotomy, making choledocholithiasis unlikely. CBD dilation is likely secondary to recent procedure and possibly recent passage of a gall stone. Current visit: No Status: Acute (3) Pancreatitis: Problem details: Lipase 651--> 461-->350--> 328 CT scan to eval for pseudocyst, pancreatitis Plan: Bowel rest; trend labs Qualifiers: Acute pancreatitis complication: unspecified Chronicity: acute Pancreatitis type: unspecified pancreatitis type Qualified Code(s): K85.90 - Acute pancreatitis without necrosis or infection, unspecified Current visit: Yes Status: Acute (4) Trigeminal neuralgia: Problem details: Baseline Continue home meds Current visit: No Status: Acute Assessment & Plan narrative: This patient is making very slow progress in the improvement of her pancreatitis. Our plan is to remove her gallbladder once her pain is gone. Given the equivocal and sluggish course of her pancreatitis, as well as a history of choledocholithiasis, ERCP, and continual waves of right upper quadrant pain, we will get a CT scan today with pancreas protocol to rule out a pseudocyst. Plan: CT abdomen pelvis with pancreas protocol IV contrast Plan for laparoscopic cholecystectomy tomorrow if tenderness is resolved in CT scan is reassuring Repeat labs tomorrow a.m. Fat free clears with Ensure supplement to be continued after scan Quality VTE Deep Vein Thrombosis/Pulmonary Embolism Present on Admission: No
[2019-08-13 07:50] VITALS: BP 110/72; PULSE 82; RESP 16; TEMP 36.6; O2SAT 100
--- NOTE | 2019-08-13 08:06 | PC.NURSE ---
AWAKE, CONVERSANT. DENIES PAIN EXCEPT FOR MILD TENDERNESS TO EPIGASTRIC AREA AND RIGHT FLANK AREA. NPO FOR CT SCAN ORDERED.
--- NOTE | 2019-08-13 08:20 | DI.CT.S_ITS ---
PROCEDURE: CT ABDOMEN WWO PELVIS W INDICATIONS: pancreatitis, rule out pseudocyst TECHNIQUE: After the administration of oral contrast, 5 mm thick sections acquired from the diaphragms to the iliac crests. After the administration of intravenous contrast, 5 mm thick sections acquired from the diaphragms to the symphysis. 5 mm thick coronal and sagittal reformats were acquired. For radiation dose reduction, the following was used: automated exposure control, adjustment of mA and/or kV according to patient size. COMPARISON: Ultrasound 08/11/2019. CT abdomen and pelvis 08/01/2019. FINDINGS: Image quality: Excellent. ABDOMEN: Lung bases: Lung bases are clear. Heart size is normal. Solid organs: Liver is normal in size and enhancement. Gallbladder is nondistended. Small calcified gallstones. Biliary system is non-dilated. CBD measures 5 mm. No calcified gallstone seen in the CBD. Pancreas enhances normally and uniformly. No peripancreatic fluid collection. No appreciable peripancreatic fat stranding. No pancreatic mass. No pancreatic ductal dilatation. Spleen is normal in size and enhancement. No adrenal nodules. Both kidneys are normal in size. No hydronephrosis or nephrolithiasis. Bowel and peritoneum: Stomach, small and large bowel loops are normal in caliber and wall thickness. Appendix is unremarkable. No free fluid or air. Nodes and vessels: No retroperitoneal or mesenteric adenopathy by size criteria. Aorta and inferior vena are normal in caliber. Miscellaneous: No ventral hernias. PELVIS: Genitourinary: Bladder wall thickness is normal. Uterus is absent. Miscellaneous: No inguinal hernias or adenopathy. Bones: No suspicious bony lesions. No vertebral body compression fractures. IMPRESSION: 1. No pancreatic pseudocysts. No pancreatic necrosis. No CT evidence of acute interstitial pancreatitis. 2. Cholelithiasis. No biliary ductal dilatation. 3. Small volume of free fluid in the pelvis which could be physiologic. Dictated by: Carlos Beasley M.D. on 08/13/2019 at 9:33 Approved by: Carlos Beasley M.D. on 08/13/2019 at 9:53
[2019-08-13] MEDS: ENOXAPARIN 40 MG/0.4 ML SYRINGE SUBCUT (09:43)
[2019-08-13] MEDS: TOPIRAMATE 25 MG TABLET 50 MG PO ×2 (09:45→21:20)
[2019-08-13 11:00] VITALS: BP 115/68; PULSE 85; RESP 16; TEMP 36.6; O2SAT 100
--- NOTE | 2019-08-13 13:32 | PC.NURSE ---
PER SURGEON, OKAY FOR REGULAR CLEAR LIQUID TRAY INCLUDING, JUICE, JELLO, BROTH ETC. MD WILL SEE PATIENT IN THE MORNING. OKAY FOR CLEAR LIQUID BREAKFAST. MD WILL DETERMINE WHEN PATIENT TO BE MADE NPO FOR NILAY SCHEDULED FOR TOMORROW AT 1600. PATIENT CONTINUES TO DENY PAIN. HAS REPORTED DIARRHEA X2 THIS SHIFT.
--- NOTE | 2019-08-13 15:01 | CM.DPC ---
DCP Cont: Checked in with patient, introduced self and role. Patient was sitting up in her bed, alert and oriented, pleasant. Patient resides on [facility] with her significant other, Gema. Patient mentioned that her mother is staying at a hotel here in [place], for she is originally from [place], recently came back from travels in [place]. Patient stated, she has lots of family support, as well as two adult sons. Patient is to be having surgery tomorrow at 4:00pm. She mentioned that she had been at [facility] recently, to have some stones removed from her bile duct. She stated that after they removed the stone, it had an effect on her liver and Pancreas. P: Patient will be having surgery tomorrow afternoon. Plan is for her to go home with family support after surgery, and medically stable. Aleja Bustamante RN/Border Measurer
[2019-08-13 15:55] VITALS: BP 126/94; PULSE 85; RESP 18; TEMP 37.5; O2SAT 100
[2019-08-13] MEDS: diazePAM 2 MG TABLET PO ×2 (17:20→21:28)
--- NOTE | 2019-08-13 17:32 | PC.NURSE ---
Addendum entered by Sonja Amanda R.N. 08/13/19 22:33: LR IV rate at 100 ml/hour per order. I accidentally scanned bag twice, when I went back to fix MAR and undo, it also undid any option to edit current IV infusion rate; change infusion rate to 100 ml/hour. Addendum entered by Sonja Amanda R.N. 08/13/19 18:55: Patient reported in better spirits after friend visited. After I came back onto floor from break, DORMITORY SUPERVISOR reported IV beeping distal occlusion for about an hour, saying that she wanted to push the whole IV pole down the stairs. C/o headache pain 04/18. Medicated with 2 tabs Tylenol. Patient also reporting my IV really hurts, IV difficult to flush, finially able to flush IV with NS and it is patent with no redness or observed sign of infiltration. IV infusing again, patient still saying my IV hurts--I need a new one--get your IV specialist in here. Parents walked in to visit, patient immediately started shaking with moderate whole body tremor. She said I am probably getting a migraine-I do this when I have a migraine. Also appears very anxious, somewhat agitated with staff, short with me, mcfp through my reply she said will you finish listening to me? Roula cunha RN now in room to attempt IV site, patient is difficult IV start. Ray LEVIN able to place IV in left inner wrist. IV Toradol then given via left wrist IV. RFA IV removed, pressure drsg applied. After IV removed, there is a small quarter-sized pink dull erythemic area just proximal to RFA dc'd iv insertion site. Refused warm blanket wrapped around arm at this time. Pt assisted to the bathroom. Her parents are assisting her with ADL's, they are very supportive, helpful & interactive with patient care. Original Note: Evening note: Yissel resting in bed, visiting with her friend. Crying intermittently, reported increased anxiety tonight saying I was fine until now--I don't know why I am crying. Reports chronic nightmares of all of my surgeries. I notified Dr Cheney of patient's anxiety, new order written for Valium prn. Med given now. Pt ambulated in hallways, full linen change done, gown changed, patient independent with partial bed bath. Refused shower, said I will tomorrow before surgery. VS stable. She denies pain, saying I feel a little sore but not pain. Ox3 and using call button appropriately, reminded to call staff for any concerns or needs- she agrees to this plan.
[2019-08-13] MEDS: ACETAMINOPHEN 325 MG TABLET 650 MG PO (18:44)
[2019-08-13] MEDS: KETOROLAC 15 MG/ML VIAL IV (19:06)
[2019-08-13 19:50] VITALS: BP 124/79; PULSE 73; RESP 16; TEMP 37.7; O2SAT 100
[2019-08-13] MEDS: PRAZOSIN 1 MG CAPSULE 8 MG PO (21:20)
[2019-08-13] MEDS: carBAMazepine XR 100 MG TAB 400 MG PO (21:20)
[2019-08-14] VITALS (14 sets, daily range): BP systolic 98–131; BP diastolic 55–81; PULSE 70–122; RESP 10–25; TEMP 35.9–37.2; O2SAT 96–100
--- NOTE | 2019-08-14 | PATH_ITS ---
[facility] Accession Number: [id number] . 01 Material submitted: . gallbladder - GALLBLADDER . 01 Clinical history: . PAIN RIGHT SIDE; PAIN BACK, SHOULDER AND CHEST . 02 Diagnosis: Gallbladder, Cholecystectomy: Chronic cholecystitis with cholelithiasis. Negative for dysplasia and malignancy. MRV 08/17/2019 1025 Local . 02 Electronically signed: . Bonnie Cotton MD, Pathologist NPI- [id number] . 01 Gross description: . Specimen is received in a formalin-filled container, labeled gallbladder, and consists of a pink-ni, smooth to cauterized, intact gallbladder, 8.3 x 2.7 x 2.5 cm, in which the cystic duct margin is inked orange. There are multiple yellow-green bosselated calculi present, up to 0.5 cm. The mucosa is ni-green, diffusely trabeculated, and focally velvety. The wall thickness averages 0.3 cm. Upon further inspection, there is a focal area of wall thickening at the fundus of gallbladder up to 0.6 cm that upon sectioning reveals pink-ni cystic to solid cut surfaces. Sectioning of the remaining gallbladder reveals unremarkable cut surfaces. Director Of [employer] sections are submitted as follows: A1 - gallbladder, including orange-inked cystic duct margin; A2-A3 - aforementioned wall thickening at fundus of gallbladder with cystic to solid cut surfaces, entirely submitted. ([id number]) /MRV 08/16/2019 1232 Local . 02 Pathologist provided ICD-10: K80.60 . 02 CPT . 033930 Performed at: [address], [place], [place] [id number] MD Kory Sun MD Phone: [phone] Performed at: 02 [facility] [place] [id number] [place] [id number] MD Bonnie Cotton MD Phone: [phone]
--- NOTE | 2019-08-14 00:59 | CM.MNRNOTE ---
Patient is alert and oriented. Breath sounds CTA with RA sat of 99%. HRR; BP low at 98/55. When getting up to bathroom states she does feel dizzy and reports chronic intermittent dizziness. Is aware to sit on edge of bed prior to getting up to walk. Assisted to bathroom with standby assist. Teary when talking about being in hospital frequently and wanting to go home; allowed to vent. BT present and abdomen is soft; denies pain. Is having small liquid, mucoid type stools. Denies dysuria, frequency or urgency. Wearing bilateral [place] stockings but refusing to wear SCD's in case she needs to get to bathroom fast because of diarrhea. Fall risk score is moderate; calls appropriately for assistance.
[2019-08-14] MEDS: OXYCODONE IR 5 MG TABLET PO (01:41)
[2019-08-14] MEDS: diazePAM 2 MG TABLET PO (01:45)
--- NOTE | 2019-08-14 01:51 | PC.NURSE ---
Addendum entered by Moon Carr R.N. 08/14/19 04:25: States she was able to sleep after receiving Oxycodone + Valium but now headache back at 5/10; requested/medicated with Toradol and given ice pack for comfort. Remains teary. Addendum entered by Moon Carr R.N. 08/14/19 01:51: Patient now complains of 6/10 headache so medicated with Oxycodone as too early to repeat Toradol. Patient again becoming teary during conversation; requested/medicated with Valium. Instructed to always call for assistance prior to getting out of bed and bed alarm activated for safety; patient verbalizes understanding. Original Note: Patient is alert and oriented. Breath sounds CTA with RA sat of 99%. HRR; BP low at 98/55. When getting up to bathroom states she does feel dizzy and reports chronic intermittent dizziness. Is aware to sit on edge of bed prior to getting up to walk. Assisted to bathroom with standby assist. Teary when talking about being in hospital frequently and wanting to go home; allowed to vent. BT present and abdomen is soft; denies pain. Is having small liquid, mucoid type stools. Denies dysuria, frequency or urgency. Wearing bilateral [place] stockings but refusing to wear SCD's in case she needs to get to bathroom fast because of diarrhea. Fall risk score is moderate; calls appropriately for assistance.
[2019-08-14] MEDS: KETOROLAC 15 MG/ML VIAL IV (04:21)
[2019-08-14] MEDS: LACTATED RINGERS 1,000 ML 100 ML IV (05:51)
[2019-08-14 08:55] LABS: Alanine Aminotransferase 93 IU/L (<35); Albumin Globulin Ratio 1.6 (1.0-2.8); Alkaline Phosphatase 69 U/L (38-126); Aspartate Aminotransferase 28 IU/L (14-36); BUN Creatinine Ratio 8.6 (6-22); Bilirubin Total 0.5 mg/dL (0.2-1.3); Blood Urea Nitrogen 6 mg/dL (7-17); Calcium 8.9 mg/dL (8.4-10.2); Carbon Dioxide 22 mmol/L (22-32); Chloride 109 mmol/L (98-107); Estimated Glomerular Filt Rate > 60.0 mL/min (>60); Globulin 2.5 g/dL (1.7-4.1); Glucose 100 mg/dL (70-100); HEMOLYSIS < 15 (0-50); Lipase 267 U/L (23-300); Potassium 3.3 mmol/L (3.4-5.1); Sodium 137 mmol/L (137-145); Total Protein 6.5 g/dL (6.3-8.2)
--- NOTE | 2019-08-14 09:24 | PM.PN.1 ---
Subjective Subjective Date Patient Seen: 08/14/19 Time Patient Seen: 08:30 Interval history: Pt c/o anxiety last night. Her pain is almost gone. She still has minimal appetite. Having some diarrhea. Otherwise, feeling somewhat better. Exam Vital Signs (past 8 hours): - 08/14/19 04:27 08/14/19 07:15 Temperature 97.9 F 97.6 F Pulse Rate 97 H 87 Respiratory Rate 19 17 Blood Pressure 123/74 122/76 Pulse Oximetry 100 100 Oxygen Delivery Method Room Air Oxygen Flow Rate 0 Narrative Exam Narrative: GENERAL: Comfortable, alert, oriented HENT: Normocephalic, atraumatic. Oral mucosa is pink and moist. EYES: Conjunctiva pink, sclera white, no periorbital swelling. CARDIOVASCULAR: Regular rate. No pedal edema. RESPIRATORY: Normal respiratory rate, breathing comfortably on room air. GASTROINTESTINAL: Abdomen soft and non-distended; nontender to palpation in the epigastrium GENITALURINARY: Miminal right flank tenderness. MUSCULOSKELETAL: Equal tone and mass bilaterally. SKIN: Warm, dry, soft, appropriate color for ethnicity. No other lesions, rashes, or wounds. NEURO: Alert and Oriented X 3. No gross sensory deficits, or cognitive issues. PSYCH: Appropriate affect and mood. Objective Labs Result Diagrams: 08/13/19 05:43 08/14/19 08:20 Labs: Laboratory Results - last 24 hr 08/14/19 08:20 Sodium 137 Potassium 3.3 L Chloride 109 H Carbon Dioxide 22 BUN 6 L Creatinine 0.70 Estimated GFR > 60.0 BUN/Creatinine Ratio 8.6 Glucose 100 Calcium 8.9 Total Bilirubin 0.5 AST 28 ALT 93 H Alkaline Phosphatase 69 Total Protein 6.5 Albumin 4.0 Globulin 2.5 Albumin/Globulin Ratio 1.6 Lipase 267 Assessment & Plan Assessment and plan (1) Cholelithiasis: Problem details: Known history of gallstones and choledocholithiasis status post ERCP. Repeat right upper quadrant ultrasound-- prominence of common duct at 7mm, but no filling defects seen in CBD Bilirubin is 0.5 and AP is 71, patient has had recent ERCP and 9mm sphincterotomy, making choledocholithiasis unlikely. Pancreatitis resolved, plan on lap cristopher today CBD dilation is likely secondary to recent procedure and possibly recent passage of a gall stone. Current visit: No Status: Acute (2) Pancreatitis: Problem details: Lipase 651--> 461-->350--> 328 --> [address] scan to eval for pseudocyst, pancreatitis --> c/w resolving pancreatitis, no pseudocyst Plan: Bowel rest; trend labs; lap cristopher today Qualifiers: Acute pancreatitis complication: unspecified Chronicity: acute Pancreatitis type: unspecified pancreatitis type Qualified Code(s): K85.90 - Acute pancreatitis without necrosis or infection, unspecified Current visit: Yes Status: Acute (3) Transaminitis: Problem details: Improving Plan: Bowel rest; Trend labs; lap cristopher today Current visit: Yes Status: Acute (4) Trigeminal neuralgia: Problem details: Baseline Continue home meds Current visit: No Status: Acute Assessment & Plan narrative: This is a 44 yo woman with resolving symptoms of post ERCP pancreatitis with gall stone pancreatitis superimposed. Now with symptoms nearly resolved, reassuring labs and reassuring CT scan we will plan on going ahead with lap cristopher today. Plan: NPO after breakfast IV fluids Zosyn for OR lap cristopher today dispo pending her OR findings, and pt is able to tolerate PO and pain is controlled Quality VTE Deep Vein Thrombosis/Pulmonary Embolism Present on Admission: No
[2019-08-14] MEDS: PANTOPRAZOLE 40 MG VIAL 20 MG IV ×2 (09:52→23:54)
[2019-08-14] MEDS: carBAMazepine XR 100 MG TAB 200 MG PO ×2 (11:14→23:54)
[2019-08-14] MEDS: LACTATED RINGERS 1,000 ML 125 ML IV (16:07)
--- NOTE | 2019-08-14 17:46 | PC.NURSE ---
Addendum entered by Sonja Amanda R.N. 08/14/19 19:17: 1820: Patient taken to surgery Original Note: Evening note: Yissel awaiting surgery. VS are stable. IV antibiotic professional healthcare representative for OR signed out of Pyxis and placed with chart to go with her to surgery. Surgery team said they are running late, eta [id number]. Patient aware of delay. She is Ox3 and situation, mother at her side massaging her shoulders.
[2019-08-14] MEDS: LACTATED RINGERS 1,000 ML 42 ML IV (18:30)
[2019-08-14] MEDS: PIPERACILLIN-TAZO 3.375 GM/50 ML FROZ.PIGGY IV ×3 (18:43→23:56)
--- NOTE | 2019-08-14 19:19 | SUR.OPER ---
Supine on padded OR bed, head on pillow, arms secured on padded arm boards at <90 degrees abduction, legs uncrossed, safety belt at thigh, tape over blanket over lower legs.
[2019-08-14] MEDS: BUPIVACAINE 0.25% W/ EPI 30 ML VIAL 60 ML INJ (20:43)
--- NOTE | 2019-08-14 20:55 | PM.OP.1 ---
Operative Date/Time/Diagnoses Date of procedure: 08/14/19 Time of procedure: 20:56 Pre-op diagnosis: acute on chronic cholecystitis, gall stone pancreatitis Post-op diagnosis: same Procedure & Clinicians Procedure: Laparoscopic cholecystectomy with intra op fluoroscopic imaging of bile ducts using indocyanine green, and interpretation of images Same procedure as scheduled: Yes Indications: Acute on chronic cholecystitis; gall stone pancreatitits Surgeon: Anastasiia Cheney Click Yes if Unassisted: Yes Operative Notes Findings: hypervascular gall bladder with acute and chronic inflammatory rind Specimen(s): other (gall bladder) Prosthetic devices, grafts, tissues, transplants, or devices: MARYLU drain Applied: drain(s) Estimated Blood Loss (mL): 25 Blood products transfused: none Procedure in detail: The patient was brought into the operating room and placed supine on the OR table. Sequential compression devices were placed on both legs and turned on. Appropriate perioperative antibiotics were given prior to the start of surgery. General anesthesia was induced the patient was intubated. The abdomen was prepped and draped in sterile fashion. Surgical time-out was conducted. Local anesthetic was injected under the skin just superior to the umbilicus and a 5 mm vertical incision was made at this site. The umbilical stalk was grasped with a Cathy and elevated. A Veress needle was passed through the fascia into proper position. The position was tested with a saline drop test which was appropriate for intra-abdominal Veress needle placement. The abdomen was then insufflated in the usual fashion. Once insufflated to 15 mm Hg the Veress needle was removed and a 5 mm optical trocar was placed under direct vision using a 5 mm 30 degree scope. Once the camera was inside the abdomen I took a look around. There was no injury from port placement. Two additional ports were placed in a similar fashion in the right upper quadrant and a 10 mm port was placed in the epigastrium. Through the 2 lateral ports the gallbladder was grasped and elevated and the infundibulum was retracted laterally to the patient's right. This exposed the gallbladder hilum and allowed for dissection of the cystic duct and cystic artery. There was quite a bit of dense scar tissue throughout the gallbladder hilum. The scar tissue was hypervascular, requiring tedious dissection and control of bleeding. Indocyanine green was given 45 minutes prior, and was now used to fluoroscopically view the bile ducts. The cystic duct was well delineated, and the junction with the common bile duct was viewed and carefully avoided during dissection. Once the cystic duct and artery were completely dissected out and I was able to see liver behind and between both structures without any other structures in the way, giving us the critical view of safety. At this point I doubly clipped both structures on the patient's side and put a single clip on the gallbladder side of both the cystic duct and artery. Both structures were then divided with laparoscopic [place]. Following this the gallbladder was gradually dissected free from the liver. There was quite a bit of hypervascularity of the scar tissue between the gallbladder and the liver. Many small vessels had to be controlled with cautery. Once the gallbladder was entirely freed, it was placed inside an Endo-Catch bag and removed through the epigastric port site. I did not have to enlarge the epigastric site in order to get the gallbladder out. Once it was out and passed off to the back table I then took another look inside the abdomen. I suctioned clean any remaining blood or fluid on the lateral side of the liver and in the subhepatic space. There was no active bleeding or leaking of bile from the gallbladder fossa or from the clipped stumps of the cystic duct and artery. Due to the hypervascularity and concern for potential recurrence of bleeding, I placed a 19 round elkin drain through the right upper quadrant lateral port site, positioned it in the infahepatic space, and secured it with 3-0 Nylon at the skin. At this point the insufflation was removed from the abdomen and the epigastric port site was closed with 0 Vicryl suture in the fascia, 3 O Vicryl in the subcutaneous layers, and 4 Monocryl in the skin. The remaining port sites were closed with 4 Monocryl in the skin. Each port site was sealed with steri strips and covered with bandaids. The drain site was secured with 4x4 gauze. Local anesthetic was given at each of the port sites and in the fascia. This concluded the procedure. At this point the needle sponge and instrument counts were correct. The gallbladder was passed off the table for pathology. Patient was awakened from anesthesia and extubated. She was transferred to the postanesthesia care unit in stable condition. Complications: none Post-operative Condition: stable Disposition: PACU
[2019-08-14] MEDS: HYDROMORPHONE 2 MG INJ 0.5 MG IV ×4 (21:09→21:24)
[2019-08-14] MEDS: fentaNYL 100 MCG/2 ML INJ 50 MCG IV ×2 (21:28→21:34)
--- NOTE | 2019-08-14 21:36 | SUR.PHASEI ---
Pt arrived to PACU with airway, out after arrival, pt c/o of 8/10 pain, medicated with dilaudid then fentanyl. Tuan [id number] with Cesar, the APPRENTICE PAINTER NECKTIES. Dr Cheney spoke at length to pt about surgery.
--- NOTE | 2019-08-14 21:54 | SUR.PHASEI ---
Face to face report to OLLIE Casillas Pt transported up to room.
--- NOTE | 2019-08-14 22:09 | SUR.PHASEI ---
Pt left with OLLIE Casillas in stable condition.
--- NOTE | 2019-08-14 22:50 | PC.NURSE ---
Addendum entered by Sonja Amanda, R.N. 08/14/19 23:36: Dr Cheney called me after patient's surgery was over, asking that she not be called tonight, and said that Dr Guillen would be taking call overnight. I passed this information on to Moon LAWRECNE RN. Addendum entered by Sonja Amanda, Aubree. 08/14/19 23:27: Patient c/o increased pain 8/10 across upper chest, reports worsens with deep breath or movement. Medicated with Dilaudid 1 mg IV, also placed warm blanket across chest which she said gave immediate relief. Full patient report given to Moon LEVIN. She is aware patient has only had sips of liquids and still needs scheduled 2100 PO meds. Original Note: Post-op note: Yissel back from OR/PACU, drowsy, very pale, oriented to hospital situation. Drowsy, falls asleep during conversation. VS stable. RA oxygen 99-100% C/o chest discomfort, per patient report, surgeon thinks this pain is caused from the gas used during surgery. Rates pain 5/10 but also falls asleep during conversation, very grawgy. Abdomen with 3 lap bandaids all CDI, one gauze drsg over elkin drain insertion site also CDI. Drain with 10 ml sero-sang output. Tolerating few ice chips. Reported urge to void, could not void via bedpan, assisted onto BSC with pivot transfer, able to void 200 ml. Back into bed, LR infusing at 125 ml/hour, tubing changed. Mother at bedside, very supportive, planning to stay night on window bench.
[2019-08-14] MEDS: HYDROMORPHONE 1 MG INJ IV (23:20)
[2019-08-14] MEDS: DOCUSATE 100 MG CAPSULE PO (23:54)
[2019-08-14] MEDS: TOPIRAMATE 25 MG TABLET 50 MG PO (23:55)
[2019-08-14] MEDS: PRAZOSIN 1 MG CAPSULE 8 MG PO (23:55)
[2019-08-15 00:05] VITALS: BP 124/90; PULSE 95; RESP 17; TEMP 37.1; O2SAT 99
[2019-08-15 01:15] VITALS: BP 121/77; PULSE 101; RESP 17; TEMP 36.8; O2SAT 99
[2019-08-15] MEDS: OXYCODONE IR 5 MG TABLET PO ×3 (01:15→10:17)
--- NOTE | 2019-08-15 02:37 | PC.NURSE ---
Addendum entered by Moon Carr R.N. 08/15/19 07:01: Ambulated in miles down to south nursing station, back to room, then around main nursing station and back to room. Addendum entered by Moon Carr R.N. 08/15/19 06:38: Medicated earlier by OLLIE Neil with Dilaudid for pain. Now this morning complains of 5/10 pain so medicated with Oxycodone. IV antibiotic started and IV alarming distal occlusion and patient states IV starting to hurt; noted slight edema at IV site so infusion stopped. Dr Cheney contacted and given update on patient status and patient questioning if IV needs to be restarted. MD reluctant to leave patient without IV access. Old IV removed and SAFETY RISK LEAD, Yamile, here to attempt restart. Original Note: 0130 Patient is alert and oriented. Breath sounds very diminished throughout with shallow respiration but RA sat of 99%. Instructed to cough and deep breathe with splinting of incision as well as use of incentive spirometer to prevent post op complications; verbalizes understanding. HRR but slightly tachy at 101. Denies nausea. BT absent and denies flatus as yet. Able to move self in bed but due to generalized weakness is being assisted to BSC with 1 assist. Has 3 bandaid dressings to upper abdomen all CDI. Dressing over MARYLU/Andrea drain site is CDI. Drain is intact and compressed with serosanguinous drainage noted in bulb. Complains of continued pain is left chest/scapula and left upper abdomen which MD has told her is related to gas used in surgery; medicated with Oxycodone as too early to repeat Dilaudid. Patient does state pain is much better than at start of shift. Is using ice pack to upper abdomen and warm blanket to left chest for additional pain relief. Wearing bilateral SCD's but declines to wear [place] stockings at this time. Mom staying with patient tonight.
[2019-08-15] MEDS: HYDROMORPHONE 1 MG INJ IV (04:18)
[2019-08-15] MEDS: LACTATED RINGERS 1,000 ML 125 ML IV (05:01)
[2019-08-15] MEDS: PIPERACILLIN-TAZO 3.375 GM/50 ML FROZ.PIGGY IV ×2 (06:13→12:15)
[2019-08-15 06:23] VITALS: BP 97/62; PULSE 102; RESP 18; TEMP 36.6; O2SAT 99
[2019-08-15 07:17] LABS: Add Manual Diff / Slide Review NO; Basophils Absolute Auto 0 /uL (0-100); Basophils Percent Auto 0.1 % (0-2); Eosinophils Absolute Auto 0 /uL (0-450); Eosinophils Percent Auto 0.1 % (2-4); Hematocrit 31.5 % (36-46); Hemoglobin 11.1 g/dL (12.0-16.0); Lymphocytes Absolute Auto 700 /uL (1100-4500); Lymphocytes Percent Auto 9.9 % (25-40); Mean Corpuscular HGB Conc 35.2 % (30-36); Mean Corpuscular Hemoglobin 33.2 PG (26-34); Mean Corpuscular Volume 94.2 fL (80-100); Monocytes Absolute Auto 400 /uL (0-900); Neutrophils Absolute Auto 5600 /uL (1500-7000); Neutrophils Percent Auto 83.9 % (50-75); Platelet Count 245 X10^3/uL (150-400); Red Blood Cell Count 3.34 X10^6/uL (4.0-5.2); Red Cell Distribution Width 12.5 % (11.6-14.8); White Blood Cell Count 6.6 X10^3/uL (4.5-11.0)
[2019-08-15 07:24] LABS: Lipase 85 U/L (23-300)
[2019-08-15 07:26] LABS: Alanine Aminotransferase 97 IU/L (<35); Albumin 3.9 g/dL (3.5-5.0); Albumin Globulin Ratio 1.7 (1.0-2.8); Alkaline Phosphatase 66 U/L (38-126); Aspartate Aminotransferase 49 IU/L (14-36); BUN Creatinine Ratio 13.3 (6-22); Bilirubin Total 0.4 mg/dL (0.2-1.3); Blood Urea Nitrogen 8 mg/dL (7-17); Calcium 8.6 mg/dL (8.4-10.2); Carbon Dioxide 18 mmol/L (22-32); Chloride 108 mmol/L (98-107); Estimated Glomerular Filt Rate > 60.0 mL/min (>60); Globulin 2.3 g/dL (1.7-4.1); Glucose 145 mg/dL (70-100); HEMOLYSIS < 15 (0-50); Magnesium 1.6 mg/dL (1.6-2.3); Potassium 3.6 mmol/L (3.4-5.1); Sodium 137 mmol/L (137-145); Total Protein 6.2 g/dL (6.3-8.2)
[2019-08-15 07:40] VITALS: BP 107/66; PULSE 85; RESP 16; TEMP 36.3; O2SAT 100
--- NOTE | 2019-08-15 07:49 | PM.PN.1 ---
Subjective Subjective Date Patient Seen: 08/15/19 Time Patient Seen: 11:06 Interval history: No acute events overnight. The patient is up walking around this morning. She says she feels much better. She would like to eat real food. She would like to go home. Exam Vital Signs (past 8 hours): - 08/15/19 00:05 08/15/19 01:15 08/15/19 06:23 Temperature 98.8 F 98.3 F 97.8 F Pulse Rate 95 H 101 H 102 H Respiratory Rate 17 17 18 Blood Pressure 124/90 121/77 97/62 Pulse Oximetry 99 99 99 Oxygen Delivery Method Room Air Oxygen Flow Rate 0 Narrative Exam Narrative: GENERAL: Well groomed and cooperative. Appears stated age. Answers questions promptly and appropriately. Vital signs noted. HENT: Normocephalic, atraumatic. Hearing intact. Oral mucosa is pink and moist. EYES: Conjunctiva pink, sclera white, no periorbital swelling. CARDIOVASCULAR: Regular rate. No pedal edema. RESPIRATORY: Normal respiratory rate, breathing comfortably on room air. GASTROINTESTINAL: Abdomen soft and non-distended; surgical dressings in place, MARYLU drain with serosanguineous output, minimal. Abdomen is appropriately tender to palpation for postop day 1 GENITALURINARY: No flank tenderness. MUSCULOSKELETAL: Equal tone and mass bilaterally. SKIN: Warm, dry, soft, appropriate color for ethnicity. No other lesions, rashes, or wounds. NEURO: Alert and Oriented X 3. No gross sensory deficits, or cognitive issues. PSYCH: Appropriate affect and mood. Objective Labs Result Diagrams: 08/15/19 06:45 08/15/19 06:45 Labs: Laboratory Results - last 24 hr 08/14/19 08/15/19 08/15/19 08:20 06:45 06:45 WBC 6.6 RBC 3.34 L Hgb 11.1 L Hct 31.5 L MCV 94.2 MCH 33.2 MCHC 35.2 RDW 12.5 Plt Count 245 Neut % (Auto) 83.9 H Lymph % (Auto) 9.9 L [place] % (Auto) 6.0 Eos % (Auto) 0.1 L Baso % (Auto) 0.1 Neut # (Auto) 5600 Lymph # (Auto) 700 L [place] # (Auto) 400 Eos # (Auto) 0 Baso # (Auto) 0 Sodium 137 137 Potassium 3.3 L 3.6 Chloride 109 H 108 H Carbon Dioxide 22 18 L BUN 6 L 8 Creatinine 0.70 0.60 Estimated GFR > 60.0 > 60.0 BUN/Creatinine Ratio 8.6 13.3 Glucose 100 145 H Calcium 8.9 8.6 Magnesium 1.6 Total Bilirubin 0.5 0.4 AST 28 49 H ALT 93 H 97 H Alkaline Phosphatase 69 66 Total Protein 6.5 6.2 L Albumin 4.0 3.9 Globulin 2.5 2.3 Albumin/Globulin Ratio 1.6 1.7 Lipase 267 08/15/19 06:45 WBC RBC Hgb Hct MCV MCH MCHC RDW Plt Count Neut % (Auto) Lymph % (Auto) [place] % (Auto) Eos % (Auto) Baso % (Auto) Neut # (Auto) Lymph # (Auto) [place] # (Auto) Eos # (Auto) Baso # (Auto) Sodium Potassium Chloride Carbon Dioxide BUN Creatinine Estimated GFR BUN/Creatinine Ratio Glucose Calcium Magnesium Total Bilirubin AST ALT Alkaline Phosphatase Total Protein Albumin Globulin Albumin/Globulin Ratio Lipase 85 D Assessment & Plan Assessment and plan (1) Cholelithiasis: Problem details: Known history of gallstones and choledocholithiasis status post ERCP. Repeat right upper quadrant ultrasound-- prominence of common duct at 7mm, but no filling defects seen in CBD Bilirubin is 0.5 and AP is 71 on admission, patient has had recent ERCP and 9mm sphincterotomy, making choledocholithiasis unlikely. Pancreatitis resolved, plan on lap cristopher today CBD dilation is likely secondary to recent procedure and possibly recent passage of a gall stone. 08/15: S/p cholecystectomy; did well, advancing diet Current visit: No Status: Acute (2) Postoperative pain: Current visit: No Status: Acute (3) Pancreatitis: Problem details: Lipase 651--> 461-->350--> 328 --> 267 --> 85 Resolved; plan as above Qualifiers: Acute pancreatitis complication: unspecified Chronicity: acute Pancreatitis type: unspecified pancreatitis type Qualified Code(s): K85.90 - Acute pancreatitis without necrosis or infection, unspecified Current visit: Yes Status: Acute (4) Transaminitis: Problem details: Improving Current visit: Yes Status: Acute (5) Trigeminal neuralgia: Problem details: Baseline Continue home meds Current visit: No Status: Acute Assessment & Plan narrative: 44-year-old woman postop day 1 from laparoscopic cholecystectomy. She is doing much better today, her labs look good, her drain looks good, and she may be able to go home today if pain is controlled with p.o. pain med, she tolerates food without vomiting or significant pain, and she is able to manage her drain at home. I have discussed all this with the nurse and the patient. We will go ahead and plan on disposition, and see how she does. PO pain med Rx drain teaching dispo planning pending tolerates PO, and pain is controlled with PO pain med Quality VTE Deep Vein Thrombosis/Pulmonary Embolism Present on Admission: No
--- NOTE | 2019-08-15 07:50 | PM.DS.1 ---
History of Present Illness History of Present Illness Chief complaint: PAIN RIGHT SIDE PAIN BACK SHOULDER AND CHEST Narrative: This is a 44-year-old woman with history of trigeminal neuralgia, who came into the ER August 01 with choledocholithiasis. [facility] was [facility] where she had an ERCP, sphincterotomy, and removal of stones from her common bile duct. She was discharged without removing her gallbladder and has been followed via labs since then. She had labs done yesterday and received a call from [facility] saying that her lipase was elevated and she needed to go into the ER. Per report the lipase was 175 yesterday. Today in the ER the lipase is 651 and her ALT is 175. Her bilirubin is normal, and her other labs are unremarkable. The patient says she has not felt well since her ERCP. She has had persistent epigastric pain, poor appetite, and boring pain that goes through to her back. She denies any nausea or vomiting. She denies fevers at home. She has been eating very little, and sticking to a bland foods such as crackers and fat free cream of mushroom soup. She has persistent trigeminal neuralgia pain, for which she takes several medications including Tegretol, Topamax, and she takes prazosin to prevent nightmares. ROS: Ten system review unremarkable other than as mentioned in HPI. PE: GENERAL: Well groomed and cooperative. Appears stated age. Answers questions promptly and appropriately. Vital signs noted. HENT: Normocephalic, atraumatic. Hearing intact. Oral mucosa is pink and moist. EYES: Conjunctiva pink, sclera white, no periorbital swelling. CARDIOVASCULAR: Regular rate. No pedal edema. RESPIRATORY: Normal respiratory rate, breathing comfortably on room air. GASTROINTESTINAL: Abdomen soft and non-distended; moderate tenderness to palpation in the epigastrium GENITALURINARY: Mild flank tenderness. MUSCULOSKELETAL: Equal tone and mass bilaterally. SKIN: Warm, dry, soft, appropriate color for ethnicity. No other lesions, rashes, or wounds. NEURO: Alert and Oriented X 3. No gross sensory deficits, or cognitive issues. PSYCH: Appropriate affect and mood. Discharge Providers Provider Date of admission: 08/10/19 21:38 Discharge Date: 08/15/19 Primary care physician: Jorge Luis Dykes MD Discharge provider: Anastasiia Cheney MD Summary Hospital Course Discharge Diagnosis: Acute on chronic cholecystitits, symptomatic choledocholithiasis, gallstone pancreatitis, ERCP related pancreatitis Hospital Course: The patient was admitted on August 10. At that point she was thought to have likely a smoldering pancreatitis as she had had significant epigastric pain worsening with taking p.o. ever since her ERCP. In addition she was having waves of worsening right upper quadrant pain especially associated with eating, most consistent with biliary colic and likely the continuing passage of stones from her gallbladder and her common duct and out the sphincterotomy that was made at the time of her ERCP. When she came in her tenderness was quite significant in the epigastrium and in the upper back, and her lipase was 650. As is the standard practice for gallstone pancreatitis, we kept her on bowel rest with p.o. non fat diet with non-fat nutritional supplements, and till she was nontender. I did communicate with her doctors at [facility] during her hospital stay as she had been scheduled for an elective cholecystectomy to be done in August at [facility]. They were in agreement that we should go ahead with cholecystectomy on this admission depending on my assessment and recommendations. I repeated a CT scan on her on TuesdayAugust 13 because suddenly her pain was more significant and her lipase was not coming down a as I would have expected. A CT scan was actually reassuring without evidence of a pseudocyst or any necrosis of the pancreas. Later that day and on the following day she did become nontender and her lipase did gradually improve. So we elected to go ahead with laparoscopic cholecystectomy on August 14. She tolerated the procedure well, and a 19 round Andrea drain was left in the right upper quadrant due to concerns about her ability to heal well without a bile leak given her fairly poor nutrition coming into the operation, as well as risk of recurrent bleeding given that she had some bleeding due to significant hypervascularity and neovascularization of the gallbladder that had to be controlled during the operation. On postop day 1 she tolerated a solid diet, had minimal MARYLU drain output, and her labs were normal with a normal bilirubin level and a significant drop in her lipase level to low normal. She did well with ambulating, and her pain was controlled with p.o. pain meds. Status at Discharge Cognitive/behavioral status at discharge: at baseline, oriented Functional status at discharge: independent ambulation Overall status at discharge: patient is not back to baseline (Still having postop pain, still has a right upper quadrant drain the past to be managed) Time Spent with Patient Time spent: Greater than 30 minutes Exam Vital Signs (past 8 hours): - 08/15/19 00:05 08/15/19 01:15 08/15/19 06:23 Temperature 98.8 F 98.3 F 97.8 F Pulse Rate 95 H 101 H 102 H Respiratory Rate 17 17 18 Blood Pressure 124/90 121/77 97/62 Pulse Oximetry 99 99 99 Oxygen Delivery Method Room Air Oxygen Flow Rate 0 Objective Labs Result Diagrams: 08/15/19 06:45 08/15/19 06:45 Labs: Laboratory Results - last 24 hr 08/14/19 08/15/19 08/15/19 08:20 06:45 06:45 WBC 6.6 RBC 3.34 L Hgb 11.1 L Hct 31.5 L MCV 94.2 MCH 33.2 MCHC 35.2 RDW 12.5 Plt Count 245 Neut % (Auto) 83.9 H Lymph % (Auto) 9.9 L [place] % (Auto) 6.0 Eos % (Auto) 0.1 L Baso % (Auto) 0.1 Neut # (Auto) 5600 Lymph # (Auto) 700 L [place] # (Auto) 400 Eos # (Auto) 0 Baso # (Auto) 0 Sodium 137 137 Potassium 3.3 L 3.6 Chloride 109 H 108 H Carbon Dioxide 22 18 L BUN 6 L 8 Creatinine 0.70 0.60 Estimated GFR > 60.0 > 60.0 BUN/Creatinine Ratio 8.6 13.3 Glucose 100 145 H Calcium 8.9 8.6 Magnesium 1.6 Total Bilirubin 0.5 0.4 AST 28 49 H ALT 93 H 97 H Alkaline Phosphatase 69 66 Total Protein 6.5 6.2 L Albumin 4.0 3.9 Globulin 2.5 2.3 Albumin/Globulin Ratio 1.6 1.7 Lipase 267 08/15/19 06:45 WBC RBC Hgb Hct MCV MCH MCHC RDW Plt Count Neut % (Auto) Lymph % (Auto) [place] % (Auto) Eos % (Auto) Baso % (Auto) Neut # (Auto) Lymph # (Auto) [place] # (Auto) Eos # (Auto) Baso # (Auto) Sodium Potassium Chloride Carbon Dioxide BUN Creatinine Estimated GFR BUN/Creatinine Ratio Glucose Calcium Magnesium Total Bilirubin AST ALT Alkaline Phosphatase Total Protein Albumin Globulin Albumin/Globulin Ratio Lipase 85 D Discharge Plan Discharge Plan Patient Disposition: Home Discharge comment: Discharge comment: You had acute on chronic cholecystitis as well as pancreatitis which was likely the result of both passing gallstones and the ERCP procedure. The gall bladder was removed and a drain was left due to hypervascularity (many blood vessels) of the gall bladder, and your poor nutritional status coming into the operation (due to not being able to eat much because of pancreatitis). Your labs have normalized and your drain output is reassuring that you do not have an ongoing infection, bile obstruction or bile leak. However, your drain is being left in to monitor for a bile leak or abscess and to allow drainage if either of those occur. We will plan to remove it when it is safe to do so. The nursing staff will teach you how to change the dressing around your drain tube, how to protect it from getting pulled out, and how to empty, record output, and recharge the drain bulb. Please call the surgeon's office or come into the ER if you develop fevers, jaundice, significant increase in pain, significant increase in drain output, green colored drain output, or other concerning symptoms. Keep yourself active with light activity but do not do any heavy lifting over ten lbs./pushing/pulling/straining for four weeks after surgery. I recommend that you convalesce at home for at least two weeks after surgery. You may return to work after your follow up appointment if you are doing well enough. That will be determined at your follow up appointment. Please contact our office to make a follow up appointment for next week. Take your pain medication as needed, and switch over to ibuprofen/tylenol when you no longer need the stronger narcotic pain medication. Make sure your pain is controlled well enough to walk around, take deep breaths, and sleep. Discharge Med Rec/Prescriptions Prescriptions: New oxycodone 5 mg tablet 5 mg PO Q4H MDD 6 PRN (Reason: pain) Qty: 30 RF: 0 docusate sodium 100 mg capsule 100 mg PO BID Qty: 60 RF: 0 Culturelle 10 billion cell capsule 1 cap PO BID Qty: 60 RF: 0 Continued carbamazepine 100 mg tablet extended release 12 hr 400 mg PO BEDTIME RF: 0 prazosin 2 mg capsule 2 - 8 mg PO BEDTIME RF: 0 sumatriptan succinate 6 mg/0.5 mL pen injector 6 mg SUBCUT BID PRN (Reason: Migraine Headache) RF: 0 topiramate 50 mg tablet 50 mg PO BID RF: 0 Follow up/Referrals: Jorge Luis Dykes MD [Primary Care Provider] - Provider Discharge Instructions Diet: Diet as Tolerated Diet comment: Ok to advance from low fat up to regular full fat diet as tolerated Skin/Wound/Dressing Care Report to your healthcare provider any signs of infection, such as:: chills, fever, night sweats, increased pain, unusual drainage and unusual redness Visit Report/Discharge Packet Instructions: DI for Cholecystectomy, DI for Laparoscopy, DI for Prashanth-Oquendo Drains, How to Use and Care for Your Prashanth-Oquendo Drain, [facility]: Wound Care Stand Alone Forms: Surgery Discharge Discharge Data Primary Care Provider: Jorge Luis Dykes Discharges patient from system. Discharge Date/Time: 08/15/19 14:00 Quality VTE Deep Vein Thrombosis/Pulmonary Embolism Present on Admission: No
[2019-08-15] MEDS: LACTOBACILLUS ACIDOPHILUS TABLET 1 EACH PO (09:07)
[2019-08-15] MEDS: DOCUSATE 100 MG CAPSULE PO (09:07)
[2019-08-15] MEDS: TOPIRAMATE 25 MG TABLET 50 MG PO (09:08)
[2019-08-15] MEDS: PANTOPRAZOLE 40 MG VIAL 20 MG IV (09:08)
[2019-08-15] MEDS: carBAMazepine XR 100 MG TAB 200 MG PO (09:08)
[2019-08-15] MEDS: ACETAMINOPHEN 325 MG TABLET 650 MG PO (09:11)
[2019-08-15 13:00] VITALS: BP 115/71; PULSE 94; RESP 17; TEMP 36.6; O2SAT 100
--- NOTE | 2019-08-15 13:32 | CM.DPC ---
DCP continued: EMR reviewed: Patient will d/C home today. CM went and talked with patient to determine what ferry to [place] the patient would like to catch that way we can do priority boarding for them. Patient stated [place] the 3:40pm ferry but would like to leave around 2:30pm so she doesn't need to [place]rique to the ferry. CM let patients nurse know and asked unit [employer] to set up priority boarding for 3:40pm [place]. Patients mom will be picking the patient up and transporting her home on the ferry. CM Depart will follow to see if any more D/C planning needs are noted. .Jessica Cmoer RN
--- NOTE | 2019-08-15 15:23 | PC.NURSE ---
[id number] Discharge instructions and home care reviewed with patient and her mom Anastasia. Anastasia is up to help from [place] and planning to stay with the patient during her recovery. Patient felt a little queesy and lightheaded when looking at drain but her mom is able to help her care for this, and was involved in received drain care teaching. Patient instructed to monitor and record output and report to MD at follow up. Patient instructed to notify MD or seek emergent care if she has fevers, jaundice, increased or bloody drainage, or any other signs or symptoms of infection, or questions or concerns. Patient instructed to follow up with surgeon Dr. Cheney next week. IV dc'd intact. Priority pass given to patient to catch [place] to home on [place]. Escorted out via wheelchair with all belongings to home with her mom.
== END 2019-08-15 14:00 | disposition home or self-care (01) | DRG 263 ==
LOC: ED 19:52 → AC 21:39
PROVIDERS: Admitting Provider Surgery; Emergency Provider Emergency Medicine; Family Provider Family Medicine; PCP Family Medicine; Visit Provider Surgery
PROC: 0FT44ZZ Resection of Gallbladder, Percutaneous Endoscopic Approach (ICD-10-PCS; CPT 47562; principal; 2019-08-14 17:15)
DX: K80.66 Calculus of gallbladder and bile duct with acute and chronic cholecystitis without obstruction (principal); K85.90 Acute pancreatitis without necrosis or infection, unspecified; R74.0 Nonspecific elevation of levels of transaminase and lactic acid dehydrogenase [LDH]; G50.0 Trigeminal neuralgia; K91.89 Other postprocedural complications and disorders of digestive system
CPT/HCPCS: 36415; 47563; 74177; 74178; 76705; 80053; 81003; 81025; 82962; 83690; 83735; 85025; 85610; 85730; 93005; 93010; 96374; 99222; 99231; 99283; 99284; C9113; J1100; J1170; J1650; J1885; J2405; J2543; J2704; J3010; Q9967

== ENCOUNTER → 2019-09-14 08:55 | Outpatient (CLI) | payer OTHER, MEDICAID, SELFPAY ==
[2019-09-14 09:26] LABS: Add Manual Diff / Slide Review NO; Basophils Absolute Auto 0 /uL (0-100); Basophils Percent Auto 0.7 % (0-2); Eosinophils Absolute Auto 100 /uL (0-450); Eosinophils Percent Auto 1.6 % (2-4); Hematocrit 38.1 % (36-46); Hemoglobin 13.2 g/dL (12.0-16.0); Lymphocytes Absolute Auto 1500 /uL (1100-4500); Mean Corpuscular HGB Conc 34.5 % (30-36); Mean Corpuscular Hemoglobin 32.7 PG (26-34); Mean Corpuscular Volume 94.8 fL (80-100); Monocytes Absolute Auto 300 /uL (0-900); Monocytes Percent Auto 6.7 % (3-14); Neutrophils Absolute Auto 1900 /uL (1500-7000); Platelet Count 209 X10^3/uL (150-400); Red Blood Cell Count 4.02 X10^6/uL (4.0-5.2); Red Cell Distribution Width 12.8 % (11.6-14.8); White Blood Cell Count 3.7 X10^3/uL (4.5-11.0)
[2019-09-14 09:42] LABS: Alanine Aminotransferase 19 IU/L (<35); Albumin 4.5 g/dL (3.5-5.0); Albumin Globulin Ratio 1.8 (1.0-2.8); Alkaline Phosphatase 59 U/L (38-126); Aspartate Aminotransferase 21 IU/L (14-36); Bilirubin Total 0.4 mg/dL (0.2-1.3); Blood Urea Nitrogen 12 mg/dL (7-17); Calcium 9.1 mg/dL (8.4-10.2); Carbon Dioxide 22 mmol/L (22-32); Chloride 109 mmol/L (98-107); Estimated Glomerular Filt Rate > 60.0 mL/min (>60); Globulin 2.5 g/dL (1.7-4.1); Glucose 104 mg/dL (70-100); HEMOLYSIS < 15 (0-50); Lipase 135 U/L (23-300); Potassium 3.8 mmol/L (3.4-5.1); Sodium 141 mmol/L (137-145)
== END ==
PROVIDERS: PCP Family Medicine; Visit Provider Surgery
DX: G89.18 Other acute postprocedural pain (principal); Z90.49 Acquired absence of other specified parts of digestive tract
CPT/HCPCS: 36415; 80053; 83690; 85025

== ENCOUNTER → 2019-09-24 12:51 | Outpatient (CLI) | payer OTHER, MEDICAID, SELFPAY ==
[2019-09-17 10:14] VITALS: BMI 35.5
--- NOTE | 2019-09-24 12:52 | DI.US.S_ITS ---
PROCEDURE: US ABDOMEN LIMITED INDICATIONS: S/P CHOLECYSTECTOMY ABD PAIN TECHNIQUE: Real-time focused scanning was performed of the abdomen, with image documentation. COMPARISON: [facility], , US ABDOMEN LIMITED, 08/10/2019, 22:18. [facility], , US ABDOMEN LIMITED, 08/01/2019, 20:13. FINDINGS: The liver appears normal in echotexture, no biliary distention is found. The gallbladder has been recently resected. No operative complication is seen. Over the bile ducts no distention or suspected retained gallstone is seen. The pancreas visualized appears normal as does the right kidney. IMPRESSION: Study limited to the right upper quadrant at clinician request, no definite acute disease is found. Depending on clinical status followup by CT scanning may become necessary. Expected postsurgical change of recent cholecystectomy, without operative complication found. Dictated by: Edward Logan M.D. on 09/24/2019 at 14:45 Approved by: Edward Logan M.D. on 09/24/2019 at 14:46
== END ==
PROVIDERS: PCP Family Medicine; Visit Provider Surgery
DX: G89.18 Other acute postprocedural pain (principal); Z90.49 Acquired absence of other specified parts of digestive tract
CPT/HCPCS: 76705

== ENCOUNTER 2019-09-28 18:44 | Emergency (ER) | payer OTHER, MEDICAID, SELFPAY ==
[2019-09-17 10:14] VITALS: BMI 35.5
[2019-09-28 19:06] VITALS: BP 146/94; PULSE 94; RESP 18; TEMP 36.9; O2SAT 100; BMI 75.4
[2019-09-28 19:23] LABS: Add Manual Diff / Slide Review NO; Basophils Absolute Auto 0 /uL (0-100); Basophils Percent Auto 0.4 % (0-2); Eosinophils Absolute Auto 100 /uL (0-450); Eosinophils Percent Auto 1.1 % (2-4); Hematocrit 37.4 % (36-46); Hemoglobin 13.1 g/dL (12.0-16.0); Lymphocytes Absolute Auto 2500 /uL (1100-4500); Lymphocytes Percent Auto 36.3 % (25-40); Mean Corpuscular Hemoglobin 33.1 PG (26-34); Mean Corpuscular Volume 94.5 fL (80-100); Monocytes Absolute Auto 500 /uL (0-900); Monocytes Percent Auto 6.6 % (3-14); Neutrophils Absolute Auto 3800 /uL (1500-7000); Neutrophils Percent Auto 55.6 % (50-75); Platelet Count 211 X10^3/uL (150-400); Red Blood Cell Count 3.96 X10^6/uL (4.0-5.2); Red Cell Distribution Width 12.9 % (11.6-14.8); White Blood Cell Count 6.8 X10^3/uL (4.5-11.0)
--- NOTE | 2019-09-28 19:28 | ED.ABDPAIN ---
HPI - Abdominal Pain <ASHLYN Mcdermott - Last Filed: 09/28/19 21:59> General Chief Complaint: Abdominal Pain Stated Complaint: states acute abdominal pain past month Time Seen by Provider: 09/28/19 18:56 Source: patient Mode of arrival: Family Vehicle Limitations: no limitations History of Present Illness HPI narrative: This is a 44 year female, prior smoker, who presents to ED with her significant other with chief complain of intermittent epigastric pain for a month and right lower quadrant pain for last 2 days. Patient reports pain is worse after eating and radiates to back and nausea with brain foggy. Patient had a cholecystectomy in 08/10/[address] [facility] by Dr. Mejia. Patient reports, initially she felt better after the surgery. Patient also reports watery loose stool 4 to 5 times a day for last 1 month. From yesterday, patient noticed bloody diarrhea and bright red rectal bleeding in between stool so. Patient describes her discomfort in epigastric area as candle burning, chills, and low grade fever running at 99+. Patient has history of hysterectomy but still has ovaries. Patient has history of bilateral ovarian cysts. Patient noticed losing weight about 20 lb over 1 month. Patient was evaluated by Dr. Suarez yesterday as follow-up appointment after the gallbladder removal. Related Data Home Medications Medication Instructions Recorded Confirmed carbamazepine 400 mg PO BEDTIME 08/13/19 09/27/19 prazosin 2 - 8 mg PO BEDTIME 08/13/19 09/27/19 sumatriptan succinate 6 mg SUBCUT BID PRN 08/13/19 09/27/19 topiramate 50 mg PO BID 08/13/19 09/27/19 Previous Rx's Medication Instructions Recorded Lactobacillus rhamnosus GG 1 cap PO BID #60 cap 08/15/19 [Culturelle] docusate sodium 100 mg PO BID #60 cap 08/15/19 oxycodone 5 mg PO Q4H PRN #30 tab MDD 6 08/15/19 omeprazole 20 mg PO DAILY #14 cap 09/28/19 ondansetron 4 mg PO Q6-8H PRN #10 tab 09/28/19 Allergies Allergy/AdvReac Type Severity Reaction Status Date / Time Sulfa (Sulfonamide Allergy Mild RASH Verified 09/27/19 10:48 Antibiotics) Review of Systems <ASHLNY Mcdermott - Last Filed: 09/28/19 21:59> Review of Systems Narrative: General: Denies fever, chills, fatigue, malaise, sweats. HEENT: Denies sinus pain, ear pain, sore throat, difficulty swallowing, dizziness. Respiratory: Denies dyspnea, cough, wheezing, hemoptysis, sputum. Cardiovascular: Denies chest pain, palpitations, orthopnea, edema. Gastrointestinal: See HPI : Denies dysuria, frequency, incontinence, hematuria, urinary retention. Musculoskeletal: Denies weakness, joint pain or bony pain. Skin: Denies rash, skin lesions, or other. Neurologic: Denies weakness, headache, numbness, change in speech, confusion, seizures, incoordination. Psychiatric: No concerning psychosocial issues. 12-point review of systems is negative except for those stated above. Patient History <ASHLYN Mcdermott - Last Filed: 09/28/19 21:59> Medical History Atypical chest pain (Inactive) Cholelithiases (Inactive) Gallbladder & bile duct stone, acute cholecystitis and obstruction (Acute) Headache (Inactive) Transaminitis (Acute) Trigeminal neuralgia (Acute) Surgical History H/O: hysterectomy (Acute) History of brain surgery (Acute) History of cholecystectomy (Acute) Social History (Updated 09/28/19 @ 19:38 by ASHLYN Mcdermott) household members: significant other Smoking Status: Never smoker Smoking Status: Never smoker alcohol intake frequency: holidays/special occasions only Substance Use Type: marijuana Exam <ASHLYN Mcdermott - Last Filed: 09/28/19 21:59> Narrative Exam Narrative: GEN: Alert, oriented x 3, well appearing and nourished, and in no acute distress. Head: Normal cephalic, atraumatic. No scalp or temporal tenderness, palpable mass or rash. EYES: Pupils are equal, round, and reactive to light and accommodation. Extraocular muscles are intact bilaterally. There is no subconjunctival hemorrhage, exudate and sclera non-icteric. ENT: Bilateral auditory canals and tympanic membranes clear. Hearing grossly intact. Nose without bleeding, purulent discharge or deviation. Facial sinuses nontender to palpate. Mucous membrane moist, no mucosal lesion. Throat without erythema, tonsillar hypertrophy or exudate. Uvula in midline, airway patent. Neck: Trachea in midline. No JVD, non-tender without lymphadenopathy. No masses or thyroid megaly. Supple, non-tender and no meningeal signs. CARDIAC: Normal regular rate and rhythm without murmurs, gallops, or rubs. No chest wall tenderness. No peripheral edema, cyanosis or pallor. Capillary refill is less than 2 seconds. RESPIRATORY: Lungs are clear to auscultate bilaterally. No cough, wheezes, rales, or rhonchi. No stridor, respiratory distress, increase work of breathing, or accessary muscle used. ABD: Abdomen soft, tender to palpate in RLQ and LUQ, non-distended. No guarding or rebound tenderness to palpate. Bowel sounds are normal in all 4 quadrants. There is no palpable masses or organomegaly. EXT: Full painless ROM of all extremities with no loss of sensation, strength, effusion or edema. SKIN: Warm, dry, normal color for patient. No erythema, lesions or rash over visible areas. BACK: Nontender without deformity or crepitance. No flank tenderness. NEUROLOGICAL: Alert and oriented to place, time and person. Sensation and motor function intact bilaterally. No facial droops, dysphasia. PSYCHIATRIC: Good judgement and reason, without hallucinations, abnormal affect or abnormal behaviors during the examination. Initial Vital Signs Initial Vital Signs: Vital Signs Temperature 98.4 F 09/28/19 19:06 Pulse Rate 94 H 09/28/19 19:06 Respiratory Rate 18 09/28/19 19:06 Blood Pressure 146/94 H 09/28/19 19:06 Pulse Oximetry 100 09/28/19 19:06 <Garfield Arriaza DO - Last Filed: 09/28/19 23:28> Initial Vital Signs Initial Vital Signs: Vital Signs Temperature 98.4 F 09/28/19 19:06 Pulse Rate 94 H 09/28/19 19:06 Respiratory Rate 18 09/28/19 19:06 Blood Pressure 146/94 H 09/28/19 19:06 Pulse Oximetry 100 09/28/19 19:06 Course <ASHLYN Mcdermott - Last Filed: 09/28/19 21:59> Orders Ordered: ED Orders 09/28/19 19:15 Complete Blood Count AUTO DIFF Stat Comprehensive Metabolic Panel Stat Lipase Stat 09/28/19 19:27 CT abdomen pelvis w con Stat Discontinued Medications Sodium Chloride (Normal Saline 0.9%) 500 mls @ 1,000 mls/hr IV BOLUS ONE Stop: 09/28/19 19:50 Last Infusion: 09/28/19 20:00 Dose: 0 mls/hr Documented by: Admin: 09/28/19 19:34 Dose: 1,000 mls/hr Documented by: AGUSTO Ketorolac Tromethamine (Toradol) 30 mg IV NOW ONE Stop: 09/28/19 19:22 Last Admin: 09/28/19 19:32 Dose: 30 mg Documented by: AGUSTO Ondansetron HCl (Zofran) 4 mg IV NOW ONE Stop: 09/28/19 19:22 Last Admin: 09/28/19 19:33 Dose: 4 mg Documented by: AGUSTO Pantoprazole Sodium (Protonix) 40 mg IV NOW ONE Stop: 09/28/19 19:22 Last Admin: 09/28/19 19:32 Dose: 40 mg Documented by: AGUSTO Consultations Consultation #1: Dr. Cheney to informed the findings. Considering a referral to GI specialist for EGD/colonoscopy (if rectal bleeding continues) at [facility] or [facility]. Time: 21:30 Vital Signs Vital signs: Vital Signs - 8 hr 09/28/19 19:06 09/28/19 20:30 09/28/19 21:00 Temperature 98.4 F Pulse Rate 94 H 77 73 Respiratory Rate 18 16 16 Blood Pressure 146/94 H Blood Pressure [Left Arm] 124/68 124/79 Pulse Oximetry 100 100 100 09/28/19 21:50 Temperature Pulse Rate 76 Respiratory Rate 18 Blood Pressure 108/68 Blood Pressure [Left Arm] Pulse Oximetry 98 <Garfield Arriaza DO - Last Filed: 09/28/19 23:28> Orders Ordered: ED Orders 09/28/19 19:15 Complete Blood Count AUTO DIFF Stat Comprehensive Metabolic Panel Stat Lipase Stat 09/28/19 19:27 CT abdomen pelvis w con Stat Discontinued Medications Sodium Chloride (Normal Saline 0.9%) 500 mls @ 1,000 mls/hr IV BOLUS ONE Stop: 09/28/19 19:50 Last Infusion: 09/28/19 20:00 Dose: 0 mls/hr Documented by: Admin: 09/28/19 19:34 Dose: 1,000 mls/hr Documented by: AGUSTO Ketorolac Tromethamine (Toradol) 30 mg IV NOW ONE Stop: 09/28/19 19:22 Last Admin: 09/28/19 19:32 Dose: 30 mg Documented by: AGUSTO Ondansetron HCl (Zofran) 4 mg IV NOW ONE Stop: 09/28/19 19:22 Last Admin: 09/28/19 19:33 Dose: 4 mg Documented by: AGUSTO Pantoprazole Sodium (Protonix) 40 mg IV NOW ONE Stop: 09/28/19 19:22 Last Admin: 09/28/19 19:32 Dose: 40 mg Documented by: AGUSTO Vital Signs Vital signs: Vital Signs - 8 hr 09/28/19 19:06 09/28/19 20:30 09/28/19 21:00 Temperature 98.4 F Pulse Rate 94 H 77 73 Respiratory Rate 18 16 16 Blood Pressure 146/94 H Blood Pressure [Left Arm] 124/68 124/79 Pulse Oximetry 100 100 100 09/28/19 21:50 Temperature Pulse Rate 76 Respiratory Rate 18 Blood Pressure 108/68 Blood Pressure [Left Arm] Pulse Oximetry 98 MDM - Abdominal Pain <Jacobo ASHLYN Porter - Last Filed: 09/28/19 21:59> Differential Diagnosis Differential diagnosis: Likely acute appendicitis and other (ovarian cyst, pancreatitis, bile duct obstruction) Medical Records Attestation: I reviewed the patient's medical records. Lab Data Attestation: I reviewed the patient's lab results. Result diagrams: 09/28/19 19:15 09/28/19 19:15 Labs: Lab Results 09/28/19 09/28/19 Range/Units 19:15 19:15 WBC 6.8 (4.5-11.0) X10^3/uL RBC 3.96 L (4.0-5.2) X10^6/uL Hgb 13.1 (12.0-16.0) g/dL Hct 37.4 (36-46) % MCV 94.5 (80-100) fL MCH 33.1 (26-34) PG MCHC 35.0 (30-36) % RDW 12.9 (11.6-14.8) % Plt Count 211 (150-400) X10^3/uL Neut % (Auto) 55.6 (50-75) % Lymph % (Auto) 36.3 (25-40) % [place] % (Auto) 6.6 (3-14) % Eos % (Auto) 1.1 L (2-4) % Baso % (Auto) 0.4 (0-2) % Neut # (Auto) 3800 (0675-4456) /uL Lymph # (Auto) 2500 (8328-8864) /uL [place] # (Auto) 500 (0-900) /uL Eos # (Auto) 100 (0-450) /uL Baso # (Auto) 0 (0-100) /uL Sodium 139 (137-145) mmol/L Potassium 3.7 (3.4-5.1) mmol/L Chloride 110 H (98-107) mmol/L Carbon Dioxide 19 L (22-32) mmol/L BUN 11 (7-17) mg/dL Creatinine 0.80 (0.52-1.04) mg/dL Estimated GFR > 60.0 (>60) mL/min BUN/Creatinine Ratio 13.8 (6-22) Glucose 127 H (70-100) mg/dL Calcium 9.4 (8.4-10.2) mg/dL Total Bilirubin 0.4 (0.2-1.3) mg/dL AST 20 (14-36) IU/L ALT 18 (<35) IU/L Alkaline Phosphatase 55 (38-126) U/L Total Protein 6.9 (6.3-8.2) g/dL Albumin 4.4 (3.5-5.0) g/dL Globulin 2.5 (1.7-4.1) g/dL Albumin/Globulin Ratio 1.8 (1.0-2.8) Lipase 149 (23-300) U/L Point of care testing: Point of Care Testing Test Results Negative Urine Dip Bedside Urine Glucose Negative Bedside Urine Bilirubin - Negative Bedside Urine Ketone +/- 5 Urine Specific [place] 1.015 Bedside Urine Occult Blood - Negative Bedside Urine pH 6.0 Bedside Urine Protein - Negative Bedside Urine Urobilinogen - Negative Bedside Urine Nitrite - Negative Bedside Urine Leukocytes - Negative Esterase Imaging Data CT scan - abdomen: Radiologist's impression: [address] [address] [address] Scan Report Signed Patient: Yissel Hernandez WMR#: [id number] : 1975Acct:[id number] Age/Sex: 44 / FDate of Service: 09/28/19 Loc: ED Accession Number: [id number] Procedure: CT abdomen pelvis w con Ordering Provider: Jacobo Porter PROCEDURE: CT ABDOMEN PELVIS W CON INDICATIONS: epigastric and RLQ pain, hx cholecystectomy 6 wks ago TECHNIQUE: After the administration of intravenous contrast, 5 mm thick sections acquired from the diaphragm to the symphysis. 5 mm coronal and sagittal reformats were acquired. For radiation dose reduction, the following was used: automated exposure control, adjustment of mA and/or kV according to patient size. COMPARISON: [facility], CT, CT ABDOMEN PELVIS W CON, 08/01/2019, 20:21. FINDINGS: Image quality: Excellent. ABDOMEN: Lung bases: Lung bases are clear. Heart size is normal. Solid organs: Liver is normal in size and enhancement. Gallbladder has been surgically resected. Biliary system is non dilated. Pancreas enhances normally. Spleen is normal in size and enhancement. No adrenal nodules. Kidneys demonstrate normal size and enhancement, without hydronephrosis. Peritoneum and bowel: Bowel loops demonstrate normal wall thickness and caliber. No free fluid or air. Nodes and vessels: No retroperitoneal or mesenteric adenopathy by size criteria. Aorta and inferior vena cava are normal in size. Miscellaneous: No ventral hernias. PELVIS: Genitourinary: Bladder wall thickness is normal. Miscellaneous: No inguinal hernias or adenopathy. A normal or abnormal appendix could not be located. Bones: No suspicious bony lesions. No vertebral body compression fractures. IMPRESSION: Reported cholecystectomy approximately 6 weeks ago. No operative complication found. Within the right lower quadrant there is no sign of appendicitis but a normal or abnormal appendix could not be located. No secondary CT evidence of appendicitis is found, however. Dictated by: Edward Logan M.D. on 09/28/2019 at 21:04 Approved by: Edward Logan M.D. on 09/28/2019 at 21:04 [facility] Narrative Medical decision making narrative: This is a 44 year female who presents to ED with ongoing epigastric discomfort radiating to back with nausea for 1 month and right lower quadrant pain for last 2 days. Patient reports frequent diarrhea for last a month as well and noticed bloody diarrhea since yesterday. Physical exam appreciated mild tenderness to palpate on left upper quadrant and right lower quadrant without obvious rebound tenderness. Otherwise physical exams were benign. Patient's CBC was unremarkable with normal H&H and no leukocytosis and stable vital signs. Normal lipase of 149. Unremarkable chemistry test. CT test of/pelvis was unremarkable. No obvious signs of appendicitis, biliary dilatation, normal pancreas and spleen. Patient had history of a hysterectomy and physical exam is not consistent with ovarian torsion. Patient was medicated with IV hydration, Zofran, pantoprazole, Toradol which had improved the patient's abdominal discomfort/nausea symptoms. Patient was unable to provide stool sample and declined rectal exam at this time. Dr. Cheney was consulted with the findings. According to Dr. Cheney, the patient's symptoms are unlikely related to operation or complications. Dr. Cheney will send a referral to GI specialist at [facility] for continuation of care since the patient was evaluated for cholecystitis and elevated lipase in the past or [facility] if the patient elects to for a possible shorter waiting and distance from home. The patient was advised to contact with Dr. Cheney's office on Tuesday and return precautions were discussed. Patient verbalized understanding and agrees with the treatment plan. Patient discharged to home with as needed Zofran and omeprazole 20 mg daily use for next couple of weeks. <Garfield Arriaza, DO - Last Filed: 09/28/19 23:28> Lab Data Labs: Lab Results 09/28/19 09/28/19 Range/Units 19:15 19:15 WBC 6.8 (4.5-11.0) X10^3/uL RBC 3.96 L (4.0-5.2) X10^6/uL Hgb 13.1 (12.0-16.0) g/dL Hct 37.4 (36-46) % MCV 94.5 (80-100) fL MCH 33.1 (26-34) PG MCHC 35.0 (30-36) % RDW 12.9 (11.6-14.8) % Plt Count 211 (150-400) X10^3/uL Neut % (Auto) 55.6 (50-75) % Lymph % (Auto) 36.3 (25-40) % [place] % (Auto) 6.6 (3-14) % Eos % (Auto) 1.1 L (2-4) % Baso % (Auto) 0.4 (0-2) % Neut # (Auto) 3800 (8576-5098) /uL Lymph # (Auto) 2500 (9439-2742) /uL [place] # (Auto) 500 (0-900) /uL Eos # (Auto) 100 (0-450) /uL Baso # (Auto) 0 (0-100) /uL Sodium 139 (137-145) mmol/L Potassium 3.7 (3.4-5.1) mmol/L Chloride 110 H (98-107) mmol/L Carbon Dioxide 19 L (22-32) mmol/L BUN 11 (7-17) mg/dL Creatinine 0.80 (0.52-1.04) mg/dL Estimated GFR > 60.0 (>60) mL/min BUN/Creatinine Ratio 13.8 (6-22) Glucose 127 H (70-100) mg/dL Calcium 9.4 (8.4-10.2) mg/dL Total Bilirubin 0.4 (0.2-1.3) mg/dL AST 20 (14-36) IU/L ALT 18 (<35) IU/L Alkaline Phosphatase 55 (38-126) U/L Total Protein 6.9 (6.3-8.2) g/dL Albumin 4.4 (3.5-5.0) g/dL Globulin 2.5 (1.7-4.1) g/dL Albumin/Globulin Ratio 1.8 (1.0-2.8) Lipase 149 (23-300) U/L Point of care testing: Point of Care Testing Test Results Negative Urine Dip Bedside Urine Glucose Negative Bedside Urine Bilirubin - Negative Bedside Urine Ketone +/- 5 Urine Specific [place] 1.015 Bedside Urine Occult Blood - Negative Bedside Urine pH 6.0 Bedside Urine Protein - Negative Bedside Urine Urobilinogen - Negative Bedside Urine Nitrite - Negative Bedside Urine Leukocytes - Negative Esterase Discharge Plan Departure Patient Disposition: Home Clinical Impression: Epigastric pain, Right lower quadrant abdominal pain Discharge Date/Time: 09/28/19 21:53 Instructions: DI for Abdominal Pain-Adult, DI for Epigastric Pain Activity Restrictions/Additional Instructions: You have been diagnosed with [epigastric pain and right lower quadrant pain. Lab tests were unremarkable including normal lipase, blood count, no elevation in white count. CT test of abdomen and pelvis were unremarkable indicating no obvious signs of appendicitis, biliary dilatation. We couldn't test stool today for bleeding and diarrhea.]. What to do: *Take your medications as directed. Please take omeprazole daily for next few weeks. Zofran as needed for nausea and vomiting. The medications have been transmitted to [facility]'s pharmacy. Will send you home with a container for stool collection that you can bring it to her primary care physician for testing. *Follow up with your primary care provider in 2-3 days, call for an appointment. Please contact Dr. Cheney's office on Tuesday if you do not from them by mid afternoon. Dr. Mejia is planning to send a referral to GI specialist for EGD and possibly colonoscopy. Let them know you were seen in the ED and that we asked you to be seen in follow up. *Return to ED if you have any new, worsening, or concerning symptoms, such as [chest pain, breathing difficulty, no lightheadedness, fever, unable to tolerate fluids, or any acute concerns]. Prescriptions: New ondansetron 4 mg tablet,disintegrating 4 mg PO Q6-8H PRN (Reason: nausea and vomiting) Qty: 10 RF: 0 omeprazole 20 mg capsule,delayed release(DR/EC) 20 mg PO DAILY Qty: 14 RF: 0 No Action carbamazepine 100 mg tablet extended release 12 hr 400 mg PO BEDTIME RF: 0 prazosin 2 mg capsule 2 - 8 mg PO BEDTIME RF: 0 sumatriptan succinate 6 mg/0.5 mL pen injector 6 mg SUBCUT BID PRN (Reason: Migraine Headache) RF: 0 topiramate 50 mg tablet 50 mg PO BID RF: 0 oxycodone 5 mg tablet 5 mg PO Q4H MDD 6 PRN (Reason: pain) Qty: 30 RF: 0 docusate sodium 100 mg capsule 100 mg PO BID Qty: 60 RF: 0 Culturelle 10 billion cell capsule 1 cap PO BID Qty: 60 RF: 0 Referrals: Jorge Luis Dykes MD [Primary Care Provider] - <Garfield Arriaza DO - Last Filed: 09/28/19 23:28> Sign Out Provider Sign Out Attestation: Dr Arriaza Co-Sign Statement: I was available for consultation during this patient's emergency department visit. This chart is signed by myself for administrative purposes only. I did not have direct contact with this patient during this visit. They were seen independently by the APC.
[2019-09-28] MEDS: PANTOPRAZOLE 40 MG VIAL IV (19:32)
[2019-09-28] MEDS: KETOROLAC 60 MG/2 ML VIAL 30 MG IV (19:32)
[2019-09-28] MEDS: ONDANSETRON 4 MG/2 ML INJ IV (19:33)
[2019-09-28] MEDS: SODIUM CHLORIDE 0.9% 500 ML 1000 ML IV (19:34)
[2019-09-28 19:50] LABS: Alanine Aminotransferase 18 IU/L (<35); Albumin 4.4 g/dL (3.5-5.0); Albumin Globulin Ratio 1.8 (1.0-2.8); Alkaline Phosphatase 55 U/L (38-126); Aspartate Aminotransferase 20 IU/L (14-36); BUN Creatinine Ratio 13.8 (6-22); Bilirubin Total 0.4 mg/dL (0.2-1.3); Blood Urea Nitrogen 11 mg/dL (7-17); Calcium 9.4 mg/dL (8.4-10.2); Carbon Dioxide 19 mmol/L (22-32); Chloride 110 mmol/L (98-107); Estimated Glomerular Filt Rate > 60.0 mL/min (>60); Globulin 2.5 g/dL (1.7-4.1); Glucose 127 mg/dL (70-100); HEMOLYSIS < 15 (0-50); Lipase 149 U/L (23-300); Potassium 3.7 mmol/L (3.4-5.1); Sodium 139 mmol/L (137-145); Total Protein 6.9 g/dL (6.3-8.2)
[2019-09-28 20:30] VITALS: BP 124/68; PULSE 77; RESP 16; O2SAT 100
[2019-09-28 21:00] VITALS: BP 124/79; PULSE 73; RESP 16; O2SAT 100
[2019-09-28 21:50] VITALS: BP 108/68; PULSE 76; RESP 18; O2SAT 98
== END 2019-09-28 21:53 | disposition home or self-care (01) ==
PROVIDERS: Emergency Medicine; Emergency Provider Nurse Practitioner Family; PCP Family Medicine
DX: R10.13 Epigastric pain (principal); R10.31 Right lower quadrant pain; K62.5 Hemorrhage of anus and rectum
CPT/HCPCS: 36415; 74177; 80053; 81003; 81025; 83690; 85025; 96374; 96375; 99284; C9113; J1885; J2405

== ENCOUNTER → 2021-03-16 12:29 | Outpatient (CLI) | payer MEDICARE, MEDICAID, SELFPAY ==
[2021-02-23 10:17] VITALS: BMI 35.5
[2021-03-16 21:36] LABS: COVID19 - ORCAS (NP or Nasal) Negative (Negative)
== END ==
PROVIDERS: PCP Family Medicine; Visit Provider Family Medicine
DX: Z20.822 Contact with and (suspected) exposure to COVID-19 (principal)
CPT/HCPCS: C9803; U0003

== ENCOUNTER → 2022-07-27 14:16 | Outpatient (CLI) | payer MEDICARE, MEDICAID, SELFPAY ==
[2021-02-23 10:17] VITALS: BMI 35.5
[2022-07-27 20:30] LABS: Creatine Kinase 84 U/L (30-135)
[2022-07-27 20:32] LABS: Hemoglobin A1C% w Est Avg Glu 4.9 % (4.0-6.0)
[2022-07-30 12:22] LABS: Aldolase 2.4 U/L (3.3-10.3)
[2022-08-02 16:16] LABS: Atypical P-ANCA Titer <1:20 titer (Neg:<1:20); C-ANCA Titer <1:20 titer (Neg:<1:20); P-ANCA Titer <1:20 titer (Neg:<1:20)
[2022-08-04 14:43] LABS: Antimyeloperoxidase AB <0.2; Antiproteinase 3 AB <0.2
== END ==
PROVIDERS: PCP Family Medicine; Visit Provider Psychiatry & Neurology Neurology
DX: Z90.49 Acquired absence of other specified parts of digestive tract (principal); M79.10 Myalgia, unspecified site
CPT/HCPCS: 82085; 82550; 83036; 83520; 86225; 86235; 86256

== ENCOUNTER 2022-07-28 14:55 | Emergency (ER) | payer MEDICARE, MEDICAID, SELFPAY ==
[2021-02-23 10:17] VITALS: BMI 35.5
[2022-07-28] VITALS (9 sets, daily range): BP systolic 117–138; BP diastolic 73–84; PULSE 78–90; RESP 12–18; TEMP 36.2; O2SAT 98–100; BMI 30.3
--- NOTE | 2022-07-28 15:54 | ED_ITS ---
HPI - Abdominal Pain General Chief Complaint: Abdominal Pain Stated Complaint: Acute lower right ABD pain Time Seen by Provider: 07/28/22 15:54 Mode of arrival: Family Vehicle History of Present Illness HPI narrative: Patient is a 47-year-old female who has a history of trigeminal neuralgia with history of craniotomy on nortriptyline and carb as in presenting today with right lower quadrant pain. She said that she has had a burning sensation in her right lower abdomen off and on for number of years. She rolled over in bed this morning and felt excruciating pain. The worse it has ever been. She also feels like she has bilateral thigh cramping. No significant back pain. No changes in bowel or bladder habits. He is having some mild right-sided flank pain. No fevers chills no nausea vomiting. She has not taken anything for pain. She denies any fever chills or decrease in appetite. She says there is likely right in her groin area. No significant provocation with hip movement. Related Data Home Medications Medication Instructions Recorded Confirmed carbamazepine 100 mg 400 mg PO BEDTIME 08/13/19 07/28/22 tablet,extended release,12 hr prazosin 2 mg capsule 2 - 8 mg PO BEDTIME 08/13/19 07/28/22 topiramate 50 mg tablet 50 mg PO BID 08/13/19 07/28/22 nortriptyline 10 mg capsule 10 mg PO DAILY 07/26/22 07/28/22 rizatriptan 5 mg tablet 5 mg PO ONCE 07/26/22 07/28/22 Previous Rx's Medication Instructions Recorded Lactobacillus rhamnosus GG 10 1 cap PO BID #60 caps 08/15/19 billion cell capsule (Culturelle) Allergies Allergy/AdvReac Type Severity Reaction Status Date / Time Sulfa (Sulfonamide Allergy Mild RASH Verified 07/28/22 16:29 Antibiotics) Review of Systems Review of Systems Narrative: GENERAL: Denies chills, fatigue, malaise, fever, sweats, travel HEENT: Denies sinus pain, ear pain, sore throat, difficulty swallowing, neck pain RESPIRATORY: Denies dyspnea, cough, wheezing, hemoptysis, sputum. CARDIOVASCULAR: Denies chest pain, palpitations, orthopnea, edema GASTROINTESTINAL: See HPI : Denies dysuria, frequency, incontinence, hematuria, urinary retention, flank pain. MUSCULOSKELETAL: Denies weakness, joint pain, or bony pain SKIN: No rash, no erythema, no pruritus NEUROLOGIC: Denies weakness, dizziness, headache, numbness, change in speech, confusion PSYCHIATRIC: No concerning psychosocial issues. 12 point review of systems is negative except for those stated above and HPI Patient History Medical History Atypical chest pain Cholelithiases Gallbladder & bile duct stone, acute cholecystitis and obstruction Headache History of trigeminal neuralgia Transaminitis Trigeminal neuralgia Surgical History H/O: hysterectomy History of brain surgery History of cholecystectomy Social History (Updated 09/28/19 @ 19:38 by ASHLYN Mcdermott) household members: significant other Smoking Status: Never smoker Smoking Status: Never smoker alcohol intake frequency: holidays/special occasions only Substance Use Type: marijuana Exam Initial Vital Signs Initial Vital Signs: Vital Signs Temperature 97.1 F L 07/28/22 15:16 Pulse Rate 89 07/28/22 15:16 Respiratory Rate 12 07/28/22 15:16 Blood Pressure 138/81 07/28/22 15:16 Pulse Oximetry 100 07/28/22 15:16 Oxygen Delivery Method 07/28/22 15:16 GENERAL: Alert well-appearing 39-year-old female and in no acute distress. HEENT: Head atraumatic,EOMI, pupils reactive, face symmetric, moist mucous membranes CARDIOVASCULAR: Regular rate and rhythm without murmurs, rubs or gallops. RESPIRATORY: Breath sounds equal bilaterally, no wheezes rales or rhonchi. ABDOMEN: Soft, skin is tender in right lower quadrant some palpation tenderness as well and same area. Normoactive bowel sounds all 4 quadrants. No guarding or rebound. No right upper quadrant pain or House sign : Right flank pain tender to palpation EXTREMITIES: Normal range of motion, no clubbing or edema. Neurovascularly intact NEUROLOGICAL: Alert and oriented x4 SKIN: Warm, dry, no laceration, no petechiae, no rashes or lesions. Course Orders Ordered: Discontinued Medications Ketorolac Tromethamine (Ketorolac 30 Mg/Ml Vial) 15 mg IV NOW ONE Stop: 07/28/22 16:24 Last Admin: 07/28/22 16:35 Dose: 15 mg Documented By: ZEB Ondansetron HCl (Ondansetron 4 Mg/2 Ml Inj) 4 mg IV NOW ONE Stop: 07/28/22 16:24 Last Admin: 07/28/22 16:35 Dose: 4 mg Documented By: ZEB Vital Signs Vital signs: Vital Signs - 8 hr 07/28/22 15:16 07/28/22 15:45 07/28/22 16:23 Temperature 97.1 F L Pulse Rate 89 90 90 Respiratory Rate 12 18 18 Blood Pressure 138/81 Pulse Oximetry 100 98 100 Oxygen Delivery Method Room Air 07/28/22 16:27 07/28/22 16:27 07/28/22 16:30 Temperature Pulse Rate 81 Respiratory Rate 17 Blood Pressure 137/82 132/84 Pulse Oximetry 100 Oxygen Delivery Method 07/28/22 16:30 07/28/22 17:00 07/28/22 17:30 Temperature Pulse Rate 81 80 78 Respiratory Rate 15 17 Blood Pressure Pulse Oximetry 99 100 99 Oxygen Delivery Method MDM - Abdominal Pain Lab Data Result diagrams: 07/28/22 15:33 07/28/22 15:33 Labs: Lab Results 07/28/22 07/28/22 07/28/22 Range/Units 15:33 15:33 18:21 WBC 6.0 (4.5-11.0) X10^3/uL RBC 4.11 (4.0-5.2) X10^6/uL Hgb 13.6 (12.0-16.0) g/dL Hct 37.9 (36-46) % MCV 92.2 (80-100) fL MCH 33.2 (26-34) PG MCHC 36.0 (30-36) % RDW 12.5 (11.6-14.8) % Plt Count 245 (150-400) X10^3/uL Neut % (Auto) 58.6 (50-75) % Lymph % (Auto) 34.3 (25-40) % Morrison % (Auto) 6.1 (3-14) % Eos % (Auto) 0.3 L (2-4) % Baso % (Auto) 0.7 (0-2) % Neut # (Auto) 3500 (8886-8482) /uL Lymph # (Auto) 2000 (5204-9181) /uL Morrison # (Auto) 400 (0-900) /uL Eos # (Auto) 0 (0-450) /uL Baso # (Auto) 0 (0-100) /uL Sodium 139 (137-145) mmol/L Potassium 3.5 (3.4-5.1) mmol/L Chloride 107 (98-107) mmol/L Carbon Dioxide 22 (22-32) mmol/L BUN 6 L (7-17) mg/dL Creatinine 0.82 (0.52-1.04) mg/dL Estimated GFR > 60 (>60) mL/min BUN/Creatinine Ratio 7.3 (6-22) Glucose 97 (70-100) mg/dL Calcium 8.8 (8.4-10.2) mg/dL Total Bilirubin 0.3 (0.2-1.3) mg/dL AST 25 (14-36) IU/L ALT 19 (<35) IU/L Alkaline Phosphatase 62 (38-126) U/L Total Protein 7.9 (6.3-8.2) g/dL Albumin 4.8 (3.5-5.0) g/dL Globulin 3.1 (1.7-4.1) g/dL Albumin/Globulin Ratio 1.5 (1.0-2.8) Lipase 97 (23-300) U/L Urine RBC None seen (0-5/HPF) Urine WBC 0-1/hpf (0-5/HPF) Ur Squamous Epith Cells 5-10 /hpf H (0-5/HPF) Urine Bacteria None seen (None) Ur Culture Indicated? Culture not indicate Point of care testing: Urine Dip Bedside Urine Glucose Negative Bedside Urine Bilirubin - Negative Bedside Urine Ketone +++ 80 Urine Specific Palmer 1.010 Bedside Urine Occult Blood +/- Bedside Urine pH 7.5 Bedside Urine Protein - Negative Bedside Urine Urobilinogen - Negative Bedside Urine Nitrite - Negative Bedside Urine Leukocytes - Negative Esterase Imaging Data CT scan - abdomen/pelvis: Radiologist's Impression: Patient: Yissel Hernandez MR#: [id number] : 1975 Acct:[id number] Age/Sex: 47 / F Date of Service: 07/28/22 Loc: ED Accession Number: [id number] ?? Procedure: CT abdomen pelvis w con Ordering Provider: Botnick,Deanna D.O. PROCEDURE:? CT ABDOMEN PELVIS W CON ? INDICATIONS:? right groin/rlq pain ? TECHNIQUE:? After the administration of intravenous contrast, axial sections acquired from the lung bases to the pubic symphysis.? Coronal and sagittal reformats were performed.? For radiation dose reduction, the following was used:? automated exposure control, adjustment of mA and/or kV according to patient size.? ? COMPARISON:? [facility], CT, CT ABDOMEN PELVIS W CON, 09/28/2019, 20:12. ? FINDINGS: ? Lower thorax: The lung bases are clear.? Heart size normal.? No hiatal hernia. ? Liver:? Normal in size and attenuation. No contour deformity present. ? Biliary system:? Cholecystectomy.? No intra or extrahepatic bile duct dilation. ? Pancreas:? Unremarkable without mass or inflammation evident. ? Spleen:? Normal in size and density. ? Adrenals:? Normal morphology and density. ? Reproductive system:? Hysterectomy. ? Urinary system:? Normal renal size and attenuation. No renal calculi, hydronep hrosis, or solid mass present.? Urinary bladder unremarkable. ? Gastrointestinal system:? The bowel is unremarkable without evidence of bowel obstruction or inflammation. The stomach appears unremarkable. ? Appendix:? No findings to suggest acute appendicitis. ? Peritoneal spaces:? No mesenteric or retroperitoneal adenopathy.? No free air.? Small amount of free fluid in the pelvis? ? Vasculature:? The IVC, aorta and iliac vasculature are unremarkable. ? Abdominal wall:? Abdominal wall intact without evidence of ventral or inguinal hernias. ? Musculoskeletal:? Normal bone mineralization.? No acute fractures.? ? IMPRESSION: ? 1. Acute CT findings in the abdomen and pelvis status post cholecystectomy, hysterectomy. ? Approved by: Chidi Farias M.D. on 07/28/2022 at 16:41? [facility] Narrative Medical decision making narrative: History of trigeminal neuralgia with craniotomy found to have significant scar tissue on her nerves. What she is experiencing today is is not actually new. She has had ongoing nerve like pain in that right groin area for about. It comes and goes she had an exacerbation today. Skin is quite sensitive. Actually suspect is probably more of a neuropathy rather than anything. Blood work and CT do not show any cause of her pain. She has no hip tenderness or reproducible pain with movement of leg or hip. Differential included nephrolithiasis, appendicitis, ovarian Discharge Plan Departure Patient Disposition: Home Clinical Impression: Abdominal pain, Neuropathy Instructions: DI for Abdominal Pain-Adult, DI for Peripheral Neuropathy Activity Restrictions/Additional Instructions: *You have been diagnosed with abdominal pain, possible neuropathy *What to do: At this time blood work is reassuring CT is negative. Your pain might be from nerves. Please follow-up and discussed with her neurologist *Continue to take medications as directed Ibuprofen 600 mg every 6-8 hours if needed for [id number] *Follow up with your primary care provider in 2-3 days or call [phone] *Return to ER if you should have increasing pain nausea vomiting fever or any new, worsening or concerning symptoms Prescriptions: No Action carbamazepine 100 mg tablet extended release 12 hr 400 mg PO BEDTIME prazosin 2 mg capsule 2 - 8 mg PO BEDTIME Rx Instructions: up to 4 caps for nightmares topiramate 50 mg tablet 50 mg PO BID Culturelle 10 billion cell capsule 1 cap PO BID Qty: 60 0RF Rx Instructions: give with food (meal/snack) nortriptyline 10 mg capsule 10 mg PO DAILY rizatriptan 5 mg tablet 5 mg PO ONCE Rx Instructions: may repeat once after at least 2 hours Referrals: Siva Lui DO [Primary Care Provider] - Visit Report Forms: Patient Portal/API
[2022-07-28 16:07] LABS: Add Manual Diff / Slide Review NO; Basophils Absolute Auto 0 /uL (0-100); Basophils Percent Auto 0.7 % (0-2); Eosinophils Absolute Auto 0 /uL (0-450); Eosinophils Percent Auto 0.3 % (2-4); Hematocrit 37.9 % (36-46); Hemoglobin 13.6 g/dL (12.0-16.0); Lymphocytes Absolute Auto 2000 /uL (1100-4500); Lymphocytes Percent Auto 34.3 % (25-40); Mean Corpuscular Hemoglobin 33.2 PG (26-34); Mean Corpuscular Volume 92.2 fL (80-100); Monocytes Absolute Auto 400 /uL (0-900); Monocytes Percent Auto 6.1 % (3-14); Neutrophils Absolute Auto 3500 /uL (1500-7000); Neutrophils Percent Auto 58.6 % (50-75); Platelet Count 245 X10^3/uL (150-400); Red Blood Cell Count 4.11 X10^6/uL (4.0-5.2); Red Cell Distribution Width 12.5 % (11.6-14.8)
[2022-07-28 16:16] LABS: Alanine Aminotransferase 19 IU/L (<35); Albumin 4.8 g/dL (3.5-5.0); Albumin Globulin Ratio 1.5 (1.0-2.8); Alkaline Phosphatase 62 U/L (38-126); Aspartate Aminotransferase 25 IU/L (14-36); BUN Creatinine Ratio 7.3 (6-22); Bilirubin Total 0.3 mg/dL (0.2-1.3); Blood Urea Nitrogen 6 mg/dL (7-17); Calcium 8.8 mg/dL (8.4-10.2); Carbon Dioxide 22 mmol/L (22-32); Chloride 107 mmol/L (98-107); Estimated Glomerular Filt Rate > 60 mL/min (>60); Globulin 3.1 g/dL (1.7-4.1); Glucose 97 mg/dL (70-100); HEMOLYSIS < 15 (0-50); Lipase 97 U/L (23-300); Potassium 3.5 mmol/L (3.4-5.1); Sodium 139 mmol/L (137-145); Total Protein 7.9 g/dL (6.3-8.2)
--- NOTE | 2022-07-28 16:23 | DI.CT.S_ITS ---
PROCEDURE: CT ABDOMEN PELVIS W CON INDICATIONS: right groin/rlq pain TECHNIQUE: After the administration of intravenous contrast, axial sections acquired from the lung bases to the pubic symphysis. Coronal and sagittal reformats were performed. For radiation dose reduction, the following was used: automated exposure control, adjustment of mA and/or kV according to patient size. COMPARISON: [facility], CT, CT ABDOMEN PELVIS W CON, 09/28/2019, 20:12. FINDINGS: Lower thorax: The lung bases are clear. Heart size normal. No hiatal hernia. Liver: Normal in size and attenuation. No contour deformity present. Biliary system: Cholecystectomy. No intra or extrahepatic bile duct dilation. Pancreas: Unremarkable without mass or inflammation evident. Spleen: Normal in size and density. Adrenals: Normal morphology and density. Reproductive system: Hysterectomy. Urinary system: Normal renal size and attenuation. No renal calculi, hydronephrosis, or solid mass present. Urinary bladder unremarkable. Gastrointestinal system: The bowel is unremarkable without evidence of bowel obstruction or inflammation. The stomach appears unremarkable. Appendix: No findings to suggest acute appendicitis. Peritoneal spaces: No mesenteric or retroperitoneal adenopathy. No free air. Small amount of free fluid in the pelvis Vasculature: The IVC, aorta and iliac vasculature are unremarkable. Abdominal wall: Abdominal wall intact without evidence of ventral or inguinal hernias. Musculoskeletal: Normal bone mineralization. No acute fractures. IMPRESSION: 1. Acute CT findings in the abdomen and pelvis status post cholecystectomy, hysterectomy. Approved by: Chidi Farias M.D. on 07/28/2022 at 16:41
[2022-07-28] MEDS: ONDANSETRON 4 MG/2 ML INJ IV (16:35)
[2022-07-28] MEDS: KETOROLAC 30 MG/ML VIAL 15 MG IV (16:35)
[2022-07-28 19:03] LABS: Bacteria Urine None Seen; RBC Urine None Seen (0-5/HPF); Squamous Epithelial Cell Urine 5-10 /HPF (0-5/HPF); WBC Urine 0-1/HPF (0-5/HPF)
== END 2022-07-28 18:40 | disposition home or self-care (01) ==
PROVIDERS: Emergency Provider Emergency Medicine; PCP Family Medicine
DX: R10.31 Right lower quadrant pain (principal); G62.9 Polyneuropathy, unspecified
CPT/HCPCS: 36415; 74177; 80053; 81003; 81015; 83690; 85025; 87086; 96374; 96375; 99284; J1885; J2405; Q9967

== ENCOUNTER → 2024-12-07 12:26 | Outpatient (CLI) | payer MEDICARE, MEDICAID, SELFPAY ==
[2021-02-23 10:17] VITALS: BMI 35.5
--- NOTE | 2024-12-07 12:28 | DI.MRI.S_ITS ---
PROCEDURE: MR THORACIC SPINE WO CON INDICATIONS: neuropathy, pain of right upper extremity TECHNIQUE: Noncontrast sagittal T1 spine echo and T2 fast spin echo, sagittal STIR, and T2 fast spin echo through the thoracic spine. COMPARISON: None. FINDINGS: Image quality: Excellent. Alignment and Curvature: There is normal bony alignment. Bone Marrow: Mild multilevel degenerative endplate changes. Marrow is of normal overall signal. No acute vertebral body compression fractures. Spinal Cord: Visualized spinal cord is normal in size and signal. Paraspinous Soft Tissues: No paravertebral masses. Miscellaneous: Multilevel disc desiccation with minimal disc bulges. On axial images, central canal and foramina appear widely patent at all scanned levels. IMPRESSION: Mild degenerative changes of the thoracic spine. No significant central canal or neural foraminal stenosis. Dictated by: Hosea Ruiz M.D. on 12/07/2024 at 14:56 Approved by: Hosea Ruiz M.D. on 12/07/2024 at 14:58
--- NOTE | 2024-12-07 12:28 | DI.MRI.S_ITS ---
PROCEDURE: MR CERVICAL SPINE WO CON INDICATIONS: neuropathy, pain of right upper extremity TECHNIQUE: Noncontrast sagittal T1 spin echo and T2 fast spin echo, sagittal STIR, foraminal oblique sagittal T2 fast spin echo, and axial gradient echo or T2 fast spin echo through the cervical spine. COMPARISON: None. FINDINGS: Image quality: Excellent. Alignment and Curvature: Straightening of the normal cervical lordosis. Bone Marrow: Degenerative endplate changes, most pronounced at C5-C6. Marrow demonstrates normal overall signal. Spinal Cord: Visualized spinal cord has normal size and signal. No cerebellar tonsillar herniation. Paraspinous Soft Tissues: No paravertebral masses. Prevertebral soft tissues are normal in thickness. C2-C3: No central canal or neural foraminal stenosis. C3-C4: No central canal or neural foraminal stenosis. C4-C5: Disc desiccation and minimal posterior disc osteophyte complex. Mild facet and uncovertebral arthropathy. No significant central canal or neural foraminal stenosis. C5-C6: Disc desiccation and posterior disc osteophyte complex. Mild central canal stenosis. Facet and uncovertebral arthropathy. Severe right and moderate left neural foraminal stenosis. C6-C7: Disc desiccation and mild posterior disc osteophyte complex. Mild facet and uncovertebral arthropathy. No significant central canal or neural foraminal stenosis. C7-T1: No central canal or neural foraminal stenosis. IMPRESSION: Multilevel degenerative changes, most pronounced at C5-C6 with mild central canal stenosis, severe right and moderate left neural foraminal stenosis. Dictated by: Hosea Ruiz M.D. on 12/07/2024 at 14:54 Approved by: Hosea Ruiz M.D. on 12/07/2024 at 14:56
== END ==
PROVIDERS: PCP Student in an Organized Health Care Education/Training Program; Referring Provider Student in an Organized Health Care Education/Training Program; Visit Provider Student in an Organized Health Care Education/Training Program
DX: M47.812 Spondylosis without myelopathy or radiculopathy, cervical region (principal); M48.02 Spinal stenosis, cervical region; M47.814 Spondylosis without myelopathy or radiculopathy, thoracic region; M79.601 Pain in right arm; G62.9 Polyneuropathy, unspecified
CPT/HCPCS: 72141; 72146